=== PATIENT | female | born 1950 | race American Indian/Alaskan Native ===

== ENCOUNTER 2018-12-02 07:05 | Day surgery (SDC) | payer MEDICARE ==
[2018-12-02] MEDS ORDERED: ECOTRIN PO ONE (07:47)
[2018-12-02] MEDS: NACL 0.9% 500 ML 500 ML IV SCH ×2 (08:05→10:06)
[2018-12-02 08:10] LABS: Basophils % (Auto) 0.5 % (0.0-1.8); Eosinophils # (Auto) 0.3 K/mm3 (0.0-0.4); Eosinophils % (Auto) 4.4 % (0.0-4.3); Hematocrit 33.5 % (30.3-42.9); Hemoglobin 11.3 gm/dl (10.1-14.3); Lymphocytes # (Auto) 1.5 K/mm3 (1.2-5.4); Lymphocytes % (Auto) 20.5 % (13.4-35.0); Mean Corpuscular HGB Conc 34 % (30-34); Mean Corpuscular Volume 98 fl (79-97); Monocytes # (Auto) 0.6 K/mm3 (0.0-0.8); Monocytes % (Auto) 7.8 % (0.0-7.3); Platelet Count 188 K/mm3 (140-440); Red Cell Distribution Width 13.8 % (13.2-15.2)
[2018-12-02 08:23] LABS: INR 1.08 (0.87-1.13)
[2018-12-02 08:31] LABS: BUN/Creatinine Ratio 24; Blood Urea Nitrogen 24 mg/dL (7-17); Calcium 9.5 mg/dL (8.4-10.2); Hemolysis Index 12
[2018-12-02] MEDS ORDERED: NITROGLYCERIN SYRINGE 3 ML ONE (09:35)
[2018-12-02] MEDS ORDERED: XYLOCAINE 2% INFILTRATI ONE (09:35)
[2018-12-02] MEDS ORDERED: VERSED ONE (09:35)
[2018-12-02] MEDS ORDERED: SUBLIMAZE ONE (09:35)
[2018-12-02] MEDS ORDERED: HEPARIN/NS 5000 UNIT/500ML(CATH LAB) 1,000 ML IR ONE (09:35)
[2018-12-02] MEDS: CALAN ONE ×2 (10:10→10:17)
[2018-12-02] MEDS: HEPARIN 10,000 UNITS/10 ML ONE ×2 (10:11→10:17)
--- NOTE | 2018-12-02 10:55 | Short Stay Summary ---
Short Stay Documentation Date of service: 12/02/18 - History H&P: obtained from office - Allergies and Medications Current Medications: Allergies No Known Allergies Allergy (Unverified 12/02/18 07:05) Home Medications Medication Instructions Recorded Confirmed Last Taken Type AtorvaSTATin [Lipitor] 20 mg PO QHS 12/02/18 12/02/18 12/01/18 History Cholecalciferol (Vitamin D3) 50,000 unit PO QWEEK 12/02/18 12/02/18 11/30/18 History [Vitamin D3 50,000UNIT CAP] Enalapril Maleate [Vasotec] 20 mg PO DAILY 12/02/18 12/02/18 12/01/18 History Fluticasone/Salmeterol [Advair 1 puff IH BID 12/02/18 12/02/18 12/01/18 History Diskus 100-50 mcg] Omeprazole 20 mg PO 12/02/18 12/01/18 History hydroCHLOROthiazide [HCTZ] 25 mg PO QDAY 12/02/18 12/02/18 12/01/18 History Active Medications Sodium Chloride (Nacl 0.9% 500 Ml) 500 mls @ 50 mls/hr IV DIRECT SUZETTE Stop: 12/02/18 17:59 Last Admin: 12/02/18 10:06 Dose: 50 mls/hr Documented by: - Brief post op/procedure progress note Date of procedure: 12/02/18 Pre-op diagnosis: abnormal stress test Post-op diagnosis: same Procedure: C - see dictated cath report Anesthesia: local Estimated blood loss: none Condition: stable - Disposition Condition at discharge: Good Disposition: DC-01 TO HOME OR SELFCARE - Discharge Diagnoses (1) Abnormal stress test Status: Chronic (2) HTN (hypertension) Status: Chronic (3) Hyperlipidemia Status: Chronic Short Stay Discharge Plan Activity: advance as tolerated Wound: open to air, keep clean and dry, per your surgeon's advice Follow up with: BRITTANI TEMPLE MD [Primary Care Provider] - 7 Days JOSE MANUEL AKINS MD [Staff Physician] - 7 Days
--- NOTE | 2018-12-02 11:21 | Cardiac Catherization Report ---
INDICATIONS OF PROCEDURE: The patient is a 68-year-old female patient, being followed by Dr. Larson and Dr. Hermila Miner in the office, who was noted to have abnormal Lexiscan nuclear imaging performed on 11/10/2018. This showed medium sized partially reversible apical defect and small reversible anteroseptal defect with normal global left ventricular systolic function. However, because of abnormal stress nuclear imaging, the patient is scheduled for cardiac catheterization for definitive diagnosis and treatment. The patient is aware of the procedure, potential complications, and alternatives of therapy available. The patient is willing to proceed with coronary angiography. DESCRIPTION OF PROCEDURE: The patient was brought to the catheterization laboratory in a fasting condition. The patient was evaluated for moderate sedation and she was felt to be appropriate candidate for moderate sedation and received IV Versed and fentanyl. Subsequently, the patient was prepared in a standard fashion and right wrist area was thoroughly cleansed with chlorhexidine solution. Sterile drapes were applied. Local anesthesia was given in the right snuffbox area. Subsequently, distal radial artery in the snuffbox area was cannulated with 21-gauge arterial puncture needle. A 5-St Lucian slender sheath was introduced. The patient received 3000 units of intravenous heparin and 5 mg of intra-arterial verapamil. Subsequently, 5-St Lucian multipurpose catheter was used. However, there was resistance in the upper arm. Hence, an angiogram was performed which showed evidence of catheter being in the small branch of the radial artery, hence it was brought back and under fluoroscopy redirected into the brachial artery and multipurpose catheter was advanced into the aorta without difficulty. Catheter was advanced into the left ventricle and left ventriculogram done in MCNAMARA projection using hand injection and subsequently using the same catheter, left coronary artery angiograms were obtained in multiple views followed by right coronary angiograms in multiple views. At the end of the procedure, catheter and sheath were removed and good hemostasis was achieved in the right snuffbox area. No hematoma noted. The patient tolerated the procedure well. The patient received IV fentanyl and Versed starting at 10:08 a.m. and continuously monitored with pulse oximetry, EKG monitoring, and hemodynamic monitoring. IV sedation monitoring ended at 10:30 a.m. The patient tolerated the sedation well without any side effects. At the end of the procedure, the patient is able to communicate normally and drinking normally and moving all the extremities. The patient was transferred to the outpatient area in stable condition. Following findings were noted. HEMODYNAMICS: 1. Opening aortic pressure 117/66, left ventricular pressure 114/9. No gradient across the aortic valve. Estimated ejection fraction more than 55%. 2. Left ventriculogram done in MCNAMARA projection using a hand injection showed normal-sized left ventricle with normal contractility. Mitral regurgitation could not be evaluated because of limited amount of dye injected. 3. Right coronary artery arises normally from right coronary cusp. This is dominant, large vessel, tortuous, but angiographically smooth and normal. 4. Left coronary artery arises normally from left coronary cusp. Left main without significant disease. LAD is tortuous vessel curving around the apex. There is a large ramus branch and marginal branches, which are very, very tortuous. Otherwise, angiographically smooth and normal. 5. Collaterals none. FINAL IMPRESSION: 1. Normal-sized left ventricle with normal contractility. 2. Normal coronary anatomy angiographically, but very tortuous. 3. The patient's blood pressure and end-diastolic pressure are normal. 4. At this time, abnormal findings on the nuclear imaging cannot be explained by angiographic findings. The patient tolerated the procedure well. No untoward complications noted and findings were explained to the patient. She understands. JOB# [id number] JENI/MARYANN
[2018-12-02 13:05] VITALS: BP 113/75
== END 2018-12-02 13:35 | disposition home or self-care (01) ==
LOC: CATHLABREC 07:05
PROVIDERS: ATTEND Internal Medicine
DX: R94.39 Abnormal result of other cardiovascular function study (principal); I10 Essential (primary) hypertension; E78.5 Hyperlipidemia, unspecified; E78.00 Pure hypercholesterolemia, unspecified; J44.9 Chronic obstructive pulmonary disease, unspecified; F32.9 Major depressive disorder, single episode, unspecified; F41.9 Anxiety disorder, unspecified; Z98.890 Other specified postprocedural states; Z83.3 Family history of diabetes mellitus; Z80.3 Family history of malignant neoplasm of breast; Z87.891 Personal history of nicotine dependence; Z79.899 Other long term (current) drug therapy; Z98.49 Cataract extraction status, unspecified eye; Z82.61 Family history of arthritis; Z80.41 Family history of malignant neoplasm of ovary; Z86.2 Personal history of diseases of the blood and blood-forming organs and certain disorders involving the immune mechanism; Z82.49 Family history of ischemic heart disease and other diseases of the circulatory system
CPT/HCPCS: 36415; 80048; 85025; 85610; 85730; 93005; 93010; 93458; 99156; C1769; C1894; J1644; J2250; J3010; J7040; Q9967

== ENCOUNTER 2021-07-27 19:27 | Inpatient (IN) | payer MEDICARE ==
[2021-07-27] MEDS ORDERED: methylPREDNISolone Sod Succinate 125 MG/2 ML INJ IV ONE (20:02)
[2021-07-27] MEDS ORDERED: ALBUTEROL 2.5 MG/3 ML NEBU IH ONE (20:02)
[2021-07-27] MEDS ORDERED: MAGNESIUM SULFATE 2 GM/50 ML BAG IV ONE (20:02)
[2021-07-27] MEDS ORDERED: IPRATROPIUM 0.02% NEBU 2.5 ML IH ONE (20:02)
[2021-07-27] MEDS ORDERED: SODIUM CHLORIDE 0.9% 1000 ML 1,000 ML IV ONE (20:03)
--- NOTE | 2021-07-27 20:12 | Emergency Department Report ---
HPI - General Chief Complaint: Dyspnea/Respdistress Time Seen by Provider: 07/27/21 19:41 - HPI HPI: Room 23 The patient is a 70-year-old female present with a chief complaint of shortness of breath. The patient states her symptoms began today with shortness of breath. The patient states she ran out of her Trelegy yesterday and the pharmacy was not able to refill it. Patient admits to a cough productive of brownish-white sputum for the past 2 weeks. Patient denies history of fever but admits to rhinorrhea. The patient is not on home O2 ED Past Medical Hx - Past Medical History Hx Hypertension: Yes Hx COPD: Yes (No home O2) - Surgical History Additional Surgical History: Herniorrhaphy - Family History Family history: no significant - Social History Smoking Status: Former Smoker (None x20 years) Substance Use Type: None (Denies illicit drug use), Alcohol (Wine every other day) - Medications Home Medications: Home Medications Medication Instructions Recorded Confirmed Last Taken Type AtorvaSTATin [Lipitor] 20 mg PO QHS 12/02/18 12/02/18 12/01/18 History Cholecalciferol (Vitamin D3) 50,000 unit PO QWEEK 12/02/18 12/02/18 11/30/18 History [Vitamin D3 50,000UNIT CAP] Enalapril Maleate [Vasotec] 20 mg PO DAILY 12/02/18 12/02/18 12/01/18 History Fluticasone/Salmeterol [Advair 1 puff IH BID 12/02/18 12/02/18 12/01/18 History Diskus 100-50 mcg] Omeprazole 20 mg PO 12/02/18 12/01/18 History hydroCHLOROthiazide [HCTZ] 25 mg PO QDAY 12/02/18 12/02/18 12/01/18 History ED Review of Systems ROS: Stated complaint: SHORTNESS OF BREATH Other details as noted in HPI Constitutional: denies: fever Eyes: denies: eye pain ENT: denies: throat pain Respiratory: cough, shortness of breath, wheezing Cardiovascular: denies: chest pain Endocrine: no symptoms reported Gastrointestinal: denies: nausea, vomiting Genitourinary: denies: dysuria Musculoskeletal: denies: back pain Neurological: denies: headache Physical Exam - Physical Exam Vital Signs: Vital Signs 07/27/21 07/27/21 19:28 19:34 Temperature 97.7 F 97.7 F Pulse Rate 136 H 136 H Respiratory 22 20 Rate Blood Pressure 168/91 168/91 [Left] O2 Sat by Pulse 100 100 Oximetry Physical Exam: GENERAL: The patient is well-developed well-nourished female lying on stretcher exhibiting slightly increased work of HEENT: Normocephalic. Atraumatic. Extraocular motions are intact. Patient has moist mucous membranes. NECK: Supple. Trachea CHEST/LUNGS: Diffuse wheezing. Accessory muscle use HEART/CARDIOVASCULAR: Regular. There is tachycardia. There is no gallop rub or murmur. ABDOMEN: Abdomen is soft, nontender. Patient has normal bowel sounds. There is no abdominal distention. SKIN: There is no rash. There is no edema. There is no diaphoresis. NEURO: The patient is awake, alert, and oriented. The patient is cooperative. The patient has no focal neurologic deficits. The patient has normal speech. GCS 15 MUSCULOSKELETAL: There is no evidence of acute injury. ED Course Vital Signs 07/27/21 07/27/21 19:28 19:34 Temperature 97.7 F 97.7 F Pulse Rate 136 H 136 H Respiratory 22 20 Rate Blood Pressure 168/91 168/91 [Left] O2 Sat by Pulse 100 100 Oximetry ED Medical Decision Making - Lab Data Result diagrams: 07/27/21 20:26 07/27/21 20:26 Laboratory Tests 07/27/21 07/27/21 07/27/21 20:26 20:26 20:26 WBC 14.4 H RBC 3.11 L Hgb 9.0 L Hct 29.4 L MCV 94 MCH 29 MCHC 31 RDW 20.2 H Plt Count 342 Lymph % (Auto) Fire Warden [place] % (Auto) Fire Warden Eos % (Auto) Fire Warden Baso % (Auto) Fire Warden Lymph # (Auto) Fire Warden [place] # (Auto) Fire Warden Eos # (Auto) Fire Warden Baso # (Auto) Fire Warden Seg Neutrophils % Fire Warden Seg Neutrophils # Fire Warden Sodium 143 Potassium 3.0 L Chloride 106.2 Carbon Dioxide 22 Anion Gap 18 BUN 8 Creatinine 0.9 Estimated GFR > 60 BUN/Creatinine Ratio 9 Glucose 117 H Lactic Acid 1.60 Calcium 8.4 - EKG Data -: EKG Interpreted by Oh EKG shows normal: sinus rhythm Rate: tachycardia (135 bpm) - EKG Data When compared to previous EKG there are: previous EKG unavailable Interpretation: other (No ischemic changes seen) - Radiology Data Radiology results: report reviewed (Chest x-ray), image reviewed (Chest x-ray) interpreted by me: Chest [id number] pleural field haziness. Possibly chronic. No definite focal infiltrates. No [facility] [address] [place] [address] XRay Report Signed Patient: HALEIGH ATKINSON MR#: [id number] : 1950 Acct:[id number] Age/Sex: 70 / F ADM Date: 07/27/21 Loc: ED Attending Dr: Ordering Physician: BRITT THOMPSON MD Date of Service: 07/27/21 Procedure(s): XR chest 1V ap Accession Number(s): [id number] cc: BRITT THOMPSON MD Fluoro Time In Minutes: XR chest 1V ap INDICATION / CLINICAL INFORMATION: Shortness of breath, cough. COMPARISON: None available. FINDINGS: SUPPORT DEVICES: None. HEART /PULMONARY VASCULATURE: No significant abnormality. LUNGS / PLEURA: Severe chronic appearing parenchymal disease of the upper to mid lungs. No focal airspace consolidation. No sizable pleural effusion. No pneumothorax. IMPRESSION: Severe parenchymal disease of the upper lungs is favored to be chronic. No focal airspace consolidation, though superimposed infiltrate is difficult to exclude. Signer Name: Tanner Guzman MD Signed: 07/27/2021 8:21 PM Workstation Name: [id number] Transcribed By: JS Dictated By: TANNER GUZMAN MD Electronically Authenticated By: TANNER GUZMAN MD Signed Date/Time: 07/27/212020 DD/ 19 TD/TT: Print Cancel - Differential Diagnosis COPD exacerbation, pneumonia, COVID, bronchitis Critical care attestation.: If time is entered above; I have spent that time in minutes in the direct care of this critically ill patient, excluding procedure time. ED Disposition Clinical Impression: COPD exacerbation, Shortness of breath, Cough Disposition: ADMITTED INPATIENT Is pt being admited?: Yes Does the pt Need Aspirin: No Condition: Stable Instructions: Chronic Obstructive Pulmonary Disease (ED) Time of Disposition: 22:24 (Hospitalist called (Dr Lewis))
--- NOTE | 2021-07-27 20:25 | XRay Report ---
XR chest 1V ap INDICATION / CLINICAL INFORMATION: Shortness of breath, cough. COMPARISON: None available. FINDINGS: SUPPORT DEVICES: None. HEART /PULMONARY VASCULATURE: No significant abnormality. LUNGS / PLEURA: Severe chronic appearing parenchymal disease of the upper to mid lungs. No focal airs pace consolidation. No sizable pleural effusion. No pneumothorax. IMPRESSION: Severe parenchymal disease of the upper lungs is favored to be chronic. No focal airspace consolidati on, though superimposed infiltrate is difficult to exclude. Signer Name: Marshall Guzman MD Signed: 07/27/2021 8:21 PM Workstation Name: [id number]
[2021-07-27 21:18] LABS: BUN/Creatinine Ratio 9; Blood Urea Nitrogen 8 mg/dL (7-17); Calcium 8.4 mg/dL (8.4-10.2); Hemolysis Index 16
[2021-07-27] MEDS ORDERED: POTASSIUM CHLORIDE ER 20 MEQ TAB PO ONE (21:34)
[2021-07-27 21:49] LABS: Hematocrit 29.4 % (30.3-42.9); Mean Corpuscular HGB Conc 31 % (30-34); Mean Corpuscular Volume 94 fl (79-97); Platelet Count 342 K/mm3 (140-440); Red Blood Count 3.11 M/mm3 (3.65-5.03); Red Cell Distribution Width 20.2 % (13.2-15.2)
[2021-07-27] MEDS ORDERED: AZITHROMYCIN/NS 500 MG/250 ML 500 MG/250 ML BAG IV ONE (22:18)
[2021-07-27] MEDS ORDERED: cefTRIAXone/NS 1 GM/50 ML 1 GM/50 ML BAG IV ONE (22:18)
[2021-07-28] MEDS ORDERED: ALBUTEROL 2.5 MG/3 ML NEBU IH PRN (01:34)
[2021-07-28] MEDS ORDERED: ONDANSETRON 4 MG/2 ML INJ IV PRN (01:34)
[2021-07-28] MEDS ORDERED: ACETAMINOPHEN 325 MG TAB PO PRN (01:34)
[2021-07-28 01:48] LABS: Anisocytosis 1+; Band Neutrophils # (Manual) 0.1 K/mm3; Basophils % (Manual) 0 % (0.0-1.8); Platelet Estimate Consistent w Auto; Total Cells Counted 100
--- NOTE | 2021-07-28 02:03 | History and Physical Report ---
History of Present Illness Date of examination: 07/28/21 Date of admission: 07/28/21 01:34 Chief complaint: Shortness of breath Coughing History of present illness: 70-year-old female with past medical history of hypertension and COPD not on home oxygen was brought to the emergency room because of shortness of breath. The patient states her symptoms began today with shortness of breath. The patient states she ran out of her Trelegy yesterday and the pharmacy was not able to refill it. Patient admits to a cough productive of brownish-white sputum for the past 2 weeks. Patient denies history of fever but admits to rhinorrhea. The patient is not on home O2 In the emergency room patient chest x-ray showed severe parenchymal disease of the upper lungs is favored to be called chronic. No focal airspace consolidation, though superimposed infiltrate is difficult to exclude, we are going to admit the patient we will put the patient on COPD pathway Past History Past Medical History: COPD, hypertension Medications and Allergies Allergies Allergy/AdvReac Type Severity Reaction Status Date / Time No Known Allergies Allergy Verified 07/27/21 19:34 Home Medications Medication Instructions Recorded Confirmed Last Taken Type AtorvaSTATin [Lipitor] 20 mg PO QHS 12/02/18 12/02/18 12/01/18 History Cholecalciferol (Vitamin D3) 50,000 unit PO QWEEK 12/02/18 12/02/18 11/30/18 History [Vitamin D3 50,000UNIT CAP] Enalapril Maleate [Vasotec] 20 mg PO DAILY 12/02/18 12/02/18 12/01/18 History Fluticasone/Salmeterol [Advair 1 puff IH BID 12/02/18 12/02/18 12/01/18 History Diskus 100-50 mcg] Omeprazole 20 mg PO 12/02/18 12/01/18 History hydroCHLOROthiazide [HCTZ] 25 mg PO QDAY 12/02/18 12/02/18 12/01/18 History Active Meds: Active Medications Acetaminophen (Acetaminophen 325 Mg Tab) 650 mg PO Q4H PRN PRN Reason: Pain MILD(1-3)/Fever >100.5/MARTINEZ Albuterol (Albuterol 2.5 Mg/3 Ml Nebu) 2.5 mg IH Q4HRT PRN PRN Reason: Shortness Of Breath Albuterol/Ipratropium (Ipratropium/Albuterol Sulfate 3 Ml Ampul.Neb) 1 ampul IH Q6HRT [facility] Arformoterol Tartrate (Arformoterol 15 Mcg/2 Ml Nebu) 15 mcg IH Q12HRT [facility] Atorvastatin Calcium (Atorvastatin 20 Mg Tab) 20 mg PO QHS [facility] Budesonide (Budesonide 0.5 Mg/2 Ml Nebu) 0.5 mg IH Q12HRT [facility] Famotidine (Famotidine 10 Mg Tab) 10 mg PO BID [facility] Heparin Sodium (Porcine) (Heparin 5,000 Unit/1 Ml Vial) 5,000 unit SUB-Q Q8HR [facility] Hydrochlorothiazide (Hydrochlorothiazide 25 Mg Tab) 25 mg PO QDAY [facility] Hydromorphone HCl (Hydromorphone 1 Mg/1 Ml Inj) 0.5 mg IV Q3H PRN PRN Reason: Pain , Severe (7-10) Levofloxacin (Levofloxacin 750 Mg Tab) 750 mg PO Q24HR SUZETTE; Protocol Lisinopril (Lisinopril 20 Mg Tab) 20 mg PO QDAY [facility] Methylprednisolone Sodium Succinate (Methylprednisolone Sod Succinate 40 Mg/1 Ml Inj) 40 mg IV Q6HR SUZETTE Montelukast Sodium (Montelukast 10 Mg Tab) 10 mg PO QHS [facility] Morphine Sulfate (Morphine 2 Mg/1 Ml Inj) 2 mg IV Q4H PRN PRN Reason: Pain, Moderate (4-6) Ondansetron HCl (Ondansetron 4 Mg/2 Ml Inj) 4 mg IV Q8H PRN PRN Reason: Nausea And Vomiting Sodium Chloride (Sodium Chloride 0.9% 10 Ml Flush Syringe) 10 ml IV BID [facility] Sodium Chloride (Sodium Chloride 0.9% 10 Ml Flush Syringe) 10 ml IV PRN PRN PRN Reason: LINE FLUSH Review of Systems All systems: negative Cardiovascular: shortness of breath, dyspnea on exertion Respiratory: cough, cough with sputum, shortness of breath, dyspnea on exertion, wheezing Exam - Constitutional Vitals: Temp Pulse Resp BP Pulse Ox 97.7 F 121 H 27 H 149/86 100 07/27/21 19:34 07/28/21 01:26 07/28/21 01:26 07/28/21 01:26 07/28/21 01:32 General appearance: Present: no acute distress, well-nourished - EENT Eyes: Present: PERRL ENT: hearing intact, clear oral mucosa - Neck Neck: Present: supple, normal ROM - Respiratory Respiratory effort: normal Respiratory: bilateral: wheezing - Cardiovascular Heart Sounds: Present: S1 & S2. Absent: rub, click - Extremities Extremities: pulses symmetrical, No edema Peripheral Pulses: within normal limits - Abdominal General gastrointestinal: Present: soft, non-tender, non-distended, normal bowel sounds Female genitourinary: Present: normal - Integumentary Integumentary: Present: clear, warm, dry - Musculoskeletal Musculoskeletal: gait normal, strength equal bilaterally - Psychiatric Psychiatric: appropriate mood/affect, intact judgment & insight - Neurologic Neurologic: CNII-XII intact, moves all extremities Results - Labs CBC & Chem 7: 07/27/21 20:26 07/27/21 20:26 Labs: Laboratory Last Values WBC 14.4 K/mm3 (4.5-11.0) H 07/27/21 20: RBC 3.11 M/mm3 (3.65-5.03) L 07/27/21 20:26 Hgb 9.0 gm/dl (10.1-14.3) L 07/27/21 20: Hct 29.4 % (30.3-42.9) L 07/27/21 20: MCV 94 fl (79-97) 07/27/21 20:26 MCH 29 pg (28-32) 07/27/21 20: MCHC 31 % (30-34) 07/27/21 20: RDW 20.2 % (13.2-15.2) H 07/27/21 20:26 Plt Count 342 K/mm3 (140-440) 07/27/21 20:26 Lymph % (Auto) Stabber 07/27/21 20:26 [place] % (Auto) Stabber 07/27/21 20:26 Eos % (Auto) Stabber 07/27/21 20:26 Baso % (Auto) Stabber 07/27/21 20:26 Lymph # (Auto) Stabber 07/27/21 20:26 [place] # (Auto) Stabber 07/27/21 20:26 Eos # (Auto) Stabber 07/27/21 20:26 Baso # (Auto) Stabber 07/27/21 20:26 Add Manual Diff Complete 07/27/21 20: Total Counted 100 07/27/21 20: Seg Neutrophils % Stabber 07/27/21 20: Seg Neuts % (Manual) 84.0 % (40.0-70.0) H 07/27/21 20: Band Neutrophils % 1.0 % 07/27/21 20: Lymphocytes % (Manual) 5.0 % (13.4-35.0) L 07/27/21 20: Reactive Lymphs % (Man) 1.0 % 07/27/21 20: Monocytes % (Manual) 6.0 % (0.0-7.3) 07/27/21 20: Eosinophils % (Manual) 3.0 % (0.0-4.3) 07/27/21 20: Basophils % (Manual) 0 % (0.0-1.8) 07/27/21 20: Metamyelocytes % 0 % 07/27/21 20: Myelocytes % 0 % 07/27/21 20: Promyelocytes % 0 % 07/27/21 20: Blast Cells % 0 % 07/27/21 20: Nucleated RBC % Not Reportable 07/27/21 20: Seg Neutrophils # Stabber 07/27/21 20: Seg Neutrophils # Man 12.1 K/mm3 (1.8-7.7) H 07/27/21 20: Band Neutrophils # 0.1 K/mm3 07/27/21 20: Lymphocytes # (Manual) 0.7 K/mm3 (1.2-5.4) L 07/27/21 20: Abs React Lymphs (Man) 0.1 K/mm3 07/27/21 20: Monocytes # (Manual) 0.9 K/mm3 (0.0-0.8) H 07/27/21 20: Eosinophils # (Manual) 0.4 K/mm3 (0.0-0.4) 07/27/21 20: Basophils # (Manual) 0.0 K/mm3 (0.0-0.1) 07/27/21 20: Metamyelocytes # 0.0 K/mm3 07/27/21 20: Myelocytes # 0.0 K/mm3 07/27/21 20: Promyelocytes # 0.0 K/mm3 07/27/21 20:26 Blast Cells # 0.0 K/mm3 07/27/21 20:26 WBC Morphology Not Reportable 07/27/21 20:26 Hypersegmented Neuts Not Reportable 07/27/21 20:26 Hyposegmented Neuts Not Reportable 07/27/21 20:26 Hypogranular Neuts Not Reportable 07/27/21 20:26 Smudge Cells Not Reportable 07/27/21 20:26 Toxic Granulation Not Reportable 07/27/21 20:26 Toxic Vacuolation Not Reportable 07/27/21 20:26 Dohle Bodies Not Reportable 07/27/21 20:26 Pelger-Huet Anomaly Not Reportable 07/27/21 20:26 Gabriel Rods Not Reportable 07/27/21 20:26 Platelet Estimate Consistent w auto 07/27/21 20:26 Clumped Platelets Not Reportable 07/27/21 20:26 Plt Clumps, EDTA Not Reportable 07/27/21 20:26 Large Platelets Not Reportable 07/27/21 20:26 Giant Platelets Not Reportable 07/27/21 20:26 Platelet Satelliting Not Reportable 07/27/21 20:26 Plt Morphology Comment Not Reportable 07/27/21 20:26 RBC Morphology Not Reportable 07/27/21 20:26 Dimorphic RBCs Not Reportable 07/27/21 20:26 Polychromasia Not Reportable 07/27/21 20:26 Hypochromasia Not Reportable 07/27/21 20:26 Poikilocytosis Not Reportable 07/27/21 20:26 Anisocytosis 1+ 07/27/21 20:26 Microcytosis Not Reportable 07/27/21 20:26 Macrocytosis Not Reportable 07/27/21 20:26 Spherocytes Not Reportable 07/27/21 20:26 Pappenheimer Bodies Not Reportable 07/27/21 20:26 Sickle Cells Not Reportable 07/27/21 20:26 Target Cells Not Reportable 07/27/21 20:26 Tear Drop Cells Not Reportable 07/27/21 20:26 Ovalocytes Not Reportable 07/27/21 20:26 Helmet Cells Not Reportable 07/27/21 20:26 Gregory-[place] Bodies Not Reportable 07/27/21 20:26 [place] Rings Not Reportable 07/27/21 20:26 Maged Cells Not Reportable 07/27/21 20:26 Bite Cells Not Reportable 07/27/21 20:26 Crenated Cell Not Reportable 07/27/21 20:26 Elliptocytes Not Reportable 07/27/21 20:26 Acanthocytes (Spur) Not Reportable 07/27/21 20:26 Rouleaux Not Reportable 07/27/21 20:26 Hemoglobin C Crystals Not Reportable 07/27/21 20:26 Schistocytes Not Reportable 07/27/21 20:26 Malaria parasites Not Reportable 07/27/21 20:26 Merlin Bodies Not Reportable 07/27/21 20:26 Hem Pathologist Commnt No 07/27/21 20:26 Sodium 143 mmol/L (137-145) 07/27/21 20:26 Potassium 3.0 mmol/L (3.6-5.0) L 07/27/21 20:26 Chloride 106.2 mmol/L (98-107) 07/27/21 20:26 Carbon Dioxide 22 mmol/L (22-30) 07/27/21 20:26 Anion Gap 18 mmol/L 07/27/21 20:26 BUN 8 mg/dL (7-17) 07/27/21 20:26 Creatinine 0.9 mg/dL (0.6-1.2) 07/27/21 20:26 Estimated GFR > 60 ml/min 07/27/21 20:26 BUN/Creatinine Ratio 9 % 07/27/21 20:26 Glucose 117 mg/dL (65-100) H 07/27/21 20:26 Lactic Acid 1.60 mmol/L (0.7-2.0) 07/27/21 20:26 Calcium 8.4 mg/dL (8.4-10.2) 07/27/21 20:26 Microbiology: Microbiology 07/27/21 20:26 Peripheral/Venous Blood Culture - Preliminary Culture in Progress 07/27/21 20:26 Peripheral/Venous Blood Culture - Preliminary Culture in Progress - Imaging and Cardiology Chest x-ray: report reviewed Assessment and Plan VTE prophylaxis?: Chemical Plan of care discussed with patient/family: Yes - Patient Problems (1) Acute exacerbation of chronic obstructive pulmonary disease (COPD) Current Visit: Yes Status: Acute Plan to address problem: Admit the patient to the medical floor. Oxygen by nasal cannula 3 l/min. DuoNeb nebulizer every 4 hours. Albuterol by nebulizer every 4 hours as needed. Solu-Medrol 40 mg IV every 6 hours. Levaquin 750 mg p.o. daily. Do the blood cultures sputum culture. Consult pulmonary if needed (2) Shortness of breath Current Visit: Yes Status: Acute Plan to address problem: Oxygen by nasal cannula 3 l/min. DuoNeb nebulizer every 4 hours. Albuterol by nebulizer every 4 hours as needed. Solu-Medrol 40 mg IV every 6 hours. Levaquin 750 mg p.o. daily. Do the blood cultures sputum culture. Consult pulmonary if needed (3) HTN (hypertension) Current Visit: No Status: Chronic Plan to address problem: Hydralazine 10 mg IV every 6 hours as needed. We continue the home medication. We monitor the patient closely (4) Hyperlipidemia Current Visit: No Status: Chronic Plan to address problem: Lipitor 20 mg p.o. nightly. We continue the home medication (5) DVT prophylaxis Current Visit: Yes Status: Acute Plan to address problem: Heparin 5000 units subcu every 8 hours for DVT prophylaxis. Pepcid 20 mg p.o. twice daily for GI prophylaxis. Patient is a full code
[2021-07-28] MEDS: IPRATROPIUM/ALBUTEROL SULFATE 3 ML AMPUL.NEB IH SCH ×4 (03:41→20:24)
[2021-07-28] MEDS: methylPREDNISolone Sod Succinate 40 MG/1 ML INJ IV SCH ×3 (06:04→23:19)
[2021-07-28] MEDS: HEPARIN 5,000 UNIT/1 ML VIAL SUB-Q SCH ×3 (06:04→22:20)
--- NOTE | 2021-07-28 09:10 | Progress Note ---
Assessment and Plan Assessment and plan: VTE prophylaxis?: Chemical Plan of care discussed with patient/family: Yes --PUI/high suspicion for COVID-19 Jo PCR, isolation precautions Oxygen evaluation -- Possible atrial flutter; Beta-blockers, closely monitor Cardiology consult if no improvement - Acute exacerbation of chronic obstructive pulmonary disease (COPD) Current Visit: Yes Status: Acute Admit the patient to the medical floor. Oxygen by nasal cannula 3 l/min. DuoNeb nebulizer every 4 hours. Albuterol by nebulizer every 4 hours as needed. Solu-Medrol 40 mg IV every 6 hours. Levaquin 750 mg p.o. daily. Do the blood cultures sputum culture. Consult pulmonary if needed -- Shortness of breath Current Visit: Yes Status: Acute Oxygen by nasal cannula 3 l/min. DuoNeb nebulizer every 4 hours. Albuterol by nebulizer every 4 hours as needed. Solu-Medrol 40 mg IV every 6 hours. Levaquin 750 mg p.o. daily. Do the blood cultures sputum culture. Consult pulmonary if needed --HTN (hypertension) Current Visit: No Status: Chronic Hydralazine 10 mg IV every 6 hours as needed. We continue the home medication. We monitor the patient closely -- Hyperlipidemia Current Visit: No Status: Chronic Lipitor 20 mg p.o. nightly. We continue the home medication -- DVT prophylaxis Current Visit: Yes Status: Acute Heparin 5000 units subcu every 8 hours for DVT prophylaxis. Pepcid 20 mg p.o. twice daily for GI prophylaxis. Patient is a full code History Interval history: I have seen and examined the patient Isolation precautions PPE protocols observed Patient feels slightly better No new complaints Hospitalist Physical - Constitutional Vitals: Temp Pulse Resp BP Pulse Ox 97.7 F 100 H 16 145/92 100 07/27/21 19:34 07/28/21 08:07 07/28/21 08:07 07/28/21 08:07 07/28/21 08:07 General appearance: Present: no acute distress, well-nourished - EENT Eyes: Present: PERRL, scleral icterus - Neck Neck: Present: supple, normal ROM - Respiratory Respiratory effort: normal Respiratory: bilateral: diminished, negative: rales, rhonchi, wheezing - Cardiovascular Rhythm: regular Heart Sounds: Present: S1 & S2 - Extremities Extremities: no ischemia, No edema - Abdominal General gastrointestinal: soft, non-tender, non-distended - Integumentary Integumentary: Present: clear, warm - Psychiatric Psychiatric: appropriate mood/affect, cooperative - Neurologic Neurologic: moves all extremities Results - Labs CBC & Chem 7: 07/27/21 20:26 07/27/21 20:26 Labs: Laboratory Last Values WBC 14.4 K/mm3 (4.5-11.0) H 07/27/21 20: RBC 3.11 M/mm3 (3.65-5.03) L 07/27/21 20: Hgb 9.0 gm/dl (10.1-14.3) L 07/27/21 20: Hct 29.4 % (30.3-42.9) L 07/27/21 20: MCV 94 fl (79-97) 07/27/21 20: MCH 29 pg (28-32) 07/27/21 20: MCHC 31 % (30-34) 07/27/21 20: RDW 20.2 % (13.2-15.2) H 07/27/21 20: Plt Count 342 K/mm3 (140-440) 07/27/21 20:26 Lymph % (Auto) Mechanical Maintenance Engineer 07/27/21 20:26 [place] % (Auto) Mechanical Maintenance Engineer 07/27/21 20:26 Eos % (Auto) Mechanical Maintenance Engineer 07/27/21 20:26 Baso % (Auto) Mechanical Maintenance Engineer 07/27/21 20:26 Lymph # (Auto) Mechanical Maintenance Engineer 07/27/21 20:26 [place] # (Auto) Mechanical Maintenance Engineer 07/27/21 20:26 Eos # (Auto) Mechanical Maintenance Engineer 07/27/21 20:26 Baso # (Auto) Mechanical Maintenance Engineer 07/27/21 20:26 Add Manual Diff Complete 07/27/21 20: Total Counted 100 07/27/21 20: Seg Neutrophils % Mechanical Maintenance Engineer 07/27/21 20: Seg Neuts % (Manual) 84.0 % (40.0-70.0) H 07/27/21 20: Band Neutrophils % 1.0 % 07/27/21 20: Lymphocytes % (Manual) 5.0 % (13.4-35.0) L 07/27/21 20: Reactive Lymphs % (Man) 1.0 % 07/27/21 20:26 Monocytes % (Manual) 6.0 % (0.0-7.3) 07/27/21 20: Eosinophils % (Manual) 3.0 % (0.0-4.3) 07/27/21 20: Basophils % (Manual) 0 % (0.0-1.8) 07/27/21 20: Metamyelocytes % 0 % 07/27/21 20: Myelocytes % 0 % 07/27/21 20: Promyelocytes % 0 % 07/27/21 20: Blast Cells % 0 % 07/27/21 20: Nucleated RBC % Not Reportable 07/27/21 20: Seg Neutrophils # Mechanical Maintenance Engineer 07/27/21: Seg Neutrophils # Man 12.1 K/mm3 (1.8-7.7) H 07/27/21 20: Band Neutrophils # 0.1 K/mm3 07/27/21 20: Lymphocytes # (Manual) 0.7 K/mm3 (1.2-5.4) L 07/27/21 20: Abs React Lymphs (Man) 0.1 K/mm3 07/27/21 20: Monocytes # (Manual) 0.9 K/mm3 (0.0-0.8) H 07/27/21 20: Eosinophils # (Manual) 0.4 K/mm3 (0.0-0.4) 07/27/21 20: Basophils # (Manual) 0.0 K/mm3 (0.0-0.1) 07/27/21 20: Metamyelocytes # 0.0 K/mm3 07/27/21 20: Myelocytes # 0.0 K/mm3 07/27/21 20: Promyelocytes # 0.0 K/mm3 07/27/21 20: Blast Cells # 0.0 K/mm3 07/27/21 20: WBC Morphology Not Reportable 07/27/21 20: Hypersegmented Neuts Not Reportable 07/27/21 20: Hyposegmented Neuts Not Reportable 07/27/21 20: Hypogranular Neuts Not Reportable 07/27/21 20: Smudge Cells Not Reportable 07/27/21 20: Toxic Granulation Not Reportable 07/27/21 20:26 Toxic Vacuolation Not Reportable 07/27/21 20:26 Dohle Bodies Not Reportable 07/27/21 20:26 Pelger-Huet Anomaly Not Reportable 07/27/21 20:26 Gabriel Rods Not Reportable 07/27/21 20:26 Platelet Estimate Consistent w auto 07/27/21 20:26 Clumped Platelets Not Reportable 07/27/21 20:26 Plt Clumps, EDTA Not Reportable 07/27/21 20:26 Large Platelets Not Reportable 07/27/21 20:26 Giant Platelets Not Reportable 07/27/21 20:26 Platelet Satelliting Not Reportable 07/27/21 20:26 Plt Morphology Comment Not Reportable 07/27/21 20:26 RBC Morphology Not Reportable 07/27/21 20:26 Dimorphic RBCs Not Reportable 07/27/21 20:26 Polychromasia Not Reportable 07/27/21 20:26 Hypochromasia Not Reportable 07/27/21 20:26 Poikilocytosis Not Reportable 07/27/21 20:26 Anisocytosis 1+ 07/27/21 20:26 Microcytosis Not Reportable 07/27/21 20:26 Macrocytosis Not Reportable 07/27/21 20:26 Spherocytes Not Reportable 07/27/21 20:26 Pappenheimer Bodies Not Reportable 07/27/21 20:26 Sickle Cells Not Reportable 07/27/21 20:26 Target Cells Not Reportable 07/27/21 20:26 Tear Drop Cells Not Reportable 07/27/21 20:26 Ovalocytes Not Reportable 07/27/21 20:26 Helmet Cells Not Reportable 07/27/21 20:26 [place] Bodies Not Reportable 07/27/21 20:26 [place] Rings Not Reportable 07/27/21 20:26 Maged Cells Not Reportable 07/27/21 20:26 Bite Cells Not Reportable 07/27/21 20:26 Crenated Cell Not Reportable 07/27/21 20:26 Elliptocytes Not Reportable 07/27/21 20:26 Acanthocytes (Spur) Not Reportable 07/27/21 20:26 Rouleaux Not Reportable 07/27/21 20:26 Hemoglobin C Crystals Not Reportable 07/27/21 20:26 Schistocytes Not Reportable 07/27/21 20:26 Malaria parasites Not Reportable 07/27/21 20:26 Merlin Bodies Not Reportable 07/27/21 20:26 Hem Pathologist Commnt No 07/27/21 20:26 Sodium 143 mmol/L (137-145) 07/27/21 20:26 Potassium 3.0 mmol/L (3.6-5.0) L 07/27/21 20:26 Chloride 106.2 mmol/L (98-107) 07/27/21 20:26 Carbon Dioxide 22 mmol/L (22-30) 07/27/21 20:26 Anion Gap 18 mmol/L 07/27/21 20:26 BUN 8 mg/dL (7-17) 07/27/21 20:26 Creatinine 0.9 mg/dL (0.6-1.2) 07/27/21 20:26 Estimated GFR > 60 ml/min 07/27/21 20:26 BUN/Creatinine Ratio 9 % 07/27/21 20:26 Glucose 117 mg/dL (65-100) H 07/27/21 20:26 Lactic Acid 1.60 mmol/L (0.7-2.0) 07/27/21 20:26 Calcium 8.4 mg/dL (8.4-10.2) 07/27/21 20:26 Microbiology: Microbiology 07/27/21 20:26 Peripheral/Venous Blood Culture - Preliminary Culture in Progress 07/27/21 20:26 Peripheral/Venous Blood Culture - Preliminary Culture in Progress Active Medications - Current Medications Current Medications: Generic Name Dose Route Start Last Admin Trade Name Jeannine PRN Reason Stop Dose Admin Acetaminophen 650 mg 07/28/21 01:34 Acetaminophen 325 Mg Tab PO Q4H PRN Pain MILD(1-3)/Fever >100.5/MARTINEZ Albuterol 2.5 mg 07/28/21 01:34 Albuterol 2.5 Mg/3 Ml Nebu IH Q4HRT PRN Shortness Of Breath Albuterol/Ipratropium 1 ampul 07/28/21 02:00 07/28/21 03:41 Ipratropium/Albuterol Sulfate 3 Ml Ampul.Neb IH Not Given Q6HRT SUZ[facility]TE Arformoterol Tartrate 15 mcg 07/28/21 08:00 Arformoterol 15 Mcg/2 Ml Nebu IH Q12HRT [facility] Atorvastatin Calcium 20 mg 07/28/21 22:00 Atorvastatin 20 Mg Tab PO QHS [facility] Budesonide 0.5 mg 07/28/21 08:00 Budesonide 0.5 Mg/2 Ml Nebu IH Q12HRT [facility] Famotidine 10 mg 07/28/21 10:00 Famotidine 10 Mg Tab PO BID [facility] Heparin Sodium (Porcine) 5,000 unit 07/28/21 06:00 07/28/21 06:04 Heparin 5,000 Unit/1 Ml Vial SUB-Q 5,000 unit Q8HR [facility] Administration Hydrochlorothiazide 25 mg 07/28/21 10:00 Hydrochlorothiazide 25 Mg Tab PO QDAY [facility] Hydromorphone HCl 0.5 mg 07/28/21 01:34 Hydromorphone 1 Mg/1 Ml Inj IV Q3H PRN Pain , Severe (7-10) Levofloxacin 750 mg 07/28/21 10:00 Levofloxacin 750 Mg Tab PO 08/01/21 10:01 Q24HR [facility] Protocol Lisinopril 20 mg 07/28/21 10:00 Lisinopril 20 Mg Tab PO QDAY [facility] Methylprednisolone Sodium Succinate 40 mg 07/28/21 06:00 07/28/21 06:04 Methylprednisolone Sod Succinate 40 Mg/1 Ml Inj IV 40 mg Q6HR [facility] Administration Montelukast Sodium 10 mg 07/28/21 22:00 Montelukast 10 Mg Tab PO QHS [facility] Morphine Sulfate 2 mg 07/28/21 01:34 Morphine 2 Mg/1 Ml Inj IV Q4H PRN Pain, Moderate (4-6) Ondansetron HCl 4 mg 07/28/21 01:34 Ondansetron 4 Mg/2 Ml Inj IV Q8H PRN Nausea And Vomiting Sodium Chloride 10 ml 07/28/21 10:00 Sodium Chloride 0.9% 10 Ml Flush Syringe IV BID [facility] Sodium Chloride 10 ml 07/28/21 01:34 Sodium Chloride 0.9% 10 Ml Flush Syringe IV PRN PRN LINE FLUSH
[2021-07-28] MEDS: BUDESONIDE 0.5 MG/2 ML NEBU IH SCH ×2 (09:33→20:22)
[2021-07-28] MEDS: ARFORMOTEROL 15 MCG/2 ML NEBU IH SCH ×2 (09:33→20:21)
[2021-07-28] MEDS: FAMOTIDINE 10 MG TAB PO SCH ×2 (09:54→22:19)
[2021-07-28] MEDS: LISINOPRIL 20 MG TAB PO SCH (09:54)
[2021-07-28] MEDS: hydroCHLOROthiazide 25 MG TAB PO SCH (09:54)
[2021-07-28] MEDS: levoFLOXacin 750 MG TAB PO SCH (09:54)
[2021-07-28] MEDS ORDERED: FLUTICASONE IH SCH (10:00)
[2021-07-28] MEDS ORDERED: FAMOTIDINE 20 MG TAB PO SCH (10:00)
[2021-07-28] MEDS ORDERED: [UNRECOGNIZED DRUG - OTHER] IH SCH (10:00)
[2021-07-28] MEDS ORDERED: SALMETEROL IH SCH (10:00)
[2021-07-28] MEDS ORDERED: NON-FORMULARY EACH (Enalapril Maleate [Vasotec] 20 MG Tablet) PO SCH (10:00)
[2021-07-28] MEDS ORDERED: METOPROLOL TARTRATE 50 MG TAB PO ONE (13:54)
--- NOTE | 2021-07-28 19:10 | Event Note ---
Date: 07/28/21 Patient's roa PCR test is positive 07/28/2021 No hypoxia, patient saturating well on room air No need for steroids or remdesivir Isolation precautions contact and droplet isolation Patient is already on empiric antibiotics Closely monitor the patient and adjust management as needed
[2021-07-28] MEDS: MONTELUKAST 10 MG TAB PO SCH (22:19)
[2021-07-28] MEDS: METOPROLOL TARTRATE 25 MG TAB PO SCH (23:21)
[2021-07-29] MEDS: HYDROmorphone 1 MG/1 ML INJ IV PRN ×3 (00:09→20:44)
[2021-07-29] MEDS: methylPREDNISolone Sod Succinate 40 MG/1 ML INJ IV SCH ×3 (05:31→23:15)
[2021-07-29] MEDS: HEPARIN 5,000 UNIT/1 ML VIAL SUB-Q SCH ×3 (05:34→22:36)
[2021-07-29 06:20] LABS: Hematocrit 28.7 % (30.3-42.9); Mean Corpuscular HGB Conc 31 % (30-34); Mean Corpuscular Volume 96 fl (79-97); Platelet Count 356 K/mm3 (140-440); Red Blood Count 3.01 M/mm3 (3.65-5.03)
[2021-07-29 06:38] LABS: Red Cell Distribution Width 20.4 % (13.2-15.2)
[2021-07-29 06:50] LABS: BUN/Creatinine Ratio 19; Blood Urea Nitrogen 15 mg/dL (7-17); Calcium 8.4 mg/dL (8.4-10.2); Hemolysis Index 0
[2021-07-29 08:25] LABS: Anisocytosis 1+; Basophils % (Manual) 0 % (0.0-1.8); Eosinophils % (Manual) 0 % (0.0-4.3); Platelet Estimate Consistent w Auto; Total Cells Counted 100
--- NOTE | 2021-07-29 09:04 | Progress Note ---
Assessment and Plan Assessment and plan: Assessment and plan: VTE prophylaxis?: Chemical Plan of care discussed with patient/family: Yes --Positive COVID-19[07/28/2021] Jo PCR, isolation precautions Inflammatory markers Requiring 2 to 3 L of nasal cannula oxygen Prone positioning ID consult --PUI; high suspicion for COVID-19; Jo PCR test is positive -- Possible atrial flutter; sinus tach today Beta-blockers, closely monitor Cardiology consult if needed - Acute exacerbation of chronic obstructive pulmonary disease (COPD) Current Visit: Yes Status: Acute Admit the patient to the medical floor. Oxygen by nasal cannula 3 l/min. DuoNeb nebulizer every 4 hours. Albuterol by nebulizer every 4 hours as needed. Solu-Medrol 40 mg IV every 6 hours. Levaquin 750 mg p.o. daily. Do the blood cultures sputum culture. Consult pulmonary if needed -- Shortness of breath Current Visit: Yes Status: Acute Oxygen by nasal cannula 3 l/min. DuoNeb nebulizer every 4 hours. Albuterol by nebulizer every 4 hours as needed. Solu-Medrol 40 mg IV every 6 hours. Levaquin 750 mg p.o. daily. Do the blood cultures sputum culture. Consult pulmonary if needed --HTN (hypertension) Current Visit: No Status: Chronic Hydralazine 10 mg IV every 6 hours as needed. We continue the home medication. We monitor the patient closely -- Hyperlipidemia Current Visit: No Status: Chronic Lipitor 20 mg p.o. nightly. We continue the home medication -- DVT prophylaxis Current Visit: Yes Status: Acute Heparin 5000 units subcu every 8 hours for DVT prophylaxis. Pepcid 20 mg p.o. twice daily for GI prophylaxis. Patient is a full code Brief history: 70-year-old female with past medical history of hypertension and COPD not on home oxygen was brought to the emergency room because of shortness of breath. The patient states her symptoms began today with shortness of breath. The patient states she ran out of her Trelegy yesterday and the pharmacy was not ab le to refill it. Patient admits to a cough productive of brownish-white sputum for the past 2 weeks. Patient denies history of fever but admits to rhinorrhea. Jo PCR test is positive, hypoxic on steroids and remdesivir, consult ID if needed 07/29/2021; positive COVID-19 on 07/28/2021, 2 L of nasal cannula oxygen, continue steroid, add remdesivir Follow inflammatory markers History Interval history: I have seen and examined the patient at the bedside Patient's chart and medications reviewed Patient feels slightly better no new complaints Isolation precautions and PPE protocols observed Hospitalist Physical - Constitutional Vitals: Temp Pulse Resp BP Pulse Ox 98.2 F 76 18 152/96 100 07/28/21 23:11 07/28/21 23:21 07/28/21 23:11 07/28/21 23:21 07/28/21 23:11 General appearance: Present: no acute distress, well-nourished, other (2 L nasal cannula) - EENT Eyes: Present: PERRL, EOM intact - Neck Neck: Present: supple, normal ROM - Respiratory Respiratory effort: normal Respiratory: bilateral: diminished, negative: rales, rhonchi, wheezing - Cardiovascular Rhythm: regular Heart Sounds: Present: S1 & S2 - Extremities Extremities: no ischemia, No edema - Abdominal General gastrointestinal: soft, non-tender, non-distended, normal bowel sounds - Integumentary Integumentary: Present: clear, warm - Psychiatric Psychiatric: appropriate mood/affect, cooperative - Neurologic Neurologic: CNII-XII intact, moves all extremities Results - Labs CBC & Chem 7: 07/29/21 05:29 07/29/21 05:29 Labs: Laboratory Last Values WBC 13.9 K/mm3 (4.5-11.0) H 07/29/21 05:29 RBC 3.01 M/mm3 (3.65-5.03) L 07/29/21 05:29 Hgb 9.0 gm/dl (10.1-14.3) L 07/29/21 05:29 Hct 28.7 % (30.3-42.9) L 07/29/21 05:29 MCV 96 fl (79-97) 07/29/21 05:29 MCH 30 pg (28-32) 07/29/21 05:29 MCHC 31 % (30-34) 07/29/21 05:29 RDW 20.4 % (13.2-15.2) H 07/29/21 05:29 Plt Count 356 K/mm3 (140-440) 07/29/21 05:29 Lymph % (Auto) Loan Servicing Officer 07/27/21 20:26 [place] % (Auto) Loan Servicing Officer 07/27/21 20:26 Eos % (Auto) Loan Servicing Officer 07/27/21 20:26 Baso % (Auto) Loan Servicing Officer 07/27/21 20:26 Lymph # (Auto) Loan Servicing Officer 07/27/21 20:26 [place] # (Auto) Loan Servicing Officer 07/27/21 20:26 Eos # (Auto) Loan Servicing Officer 07/27/21 20:26 Baso # (Auto) Loan Servicing Officer 07/27/21 20:26 Add Manual Diff Complete 07/29/21 05:29 Total Counted 100 07/29/21 05:29 Seg Neutrophils % Loan Servicing Officer 07/29/21 05:29 Seg Neuts % (Manual) 91.0 % (40.0-70.0) H 07/29/21 05:29 Band Neutrophils % 0 % 07/29/21 05:29 Lymphocytes % (Manual) 4.0 % (13.4-35.0) L 07/29/21 05:29 Reactive Lymphs % (Man) 0 % 07/29/21 05:29 Monocytes % (Manual) 5.0 % (0.0-7.3) 07/29/21 05:29 Eosinophils % (Manual) 0 % (0.0-4.3) 07/29/21 05:29 Basophils % (Manual) 0 % (0.0-1.8) 07/29/21 05:29 Metamyelocytes % 0 % 07/29/21 05:29 Myelocytes % 0 % 07/29/21 05:29 Promyelocytes % 0 % 07/29/21 05:29 Blast Cells % 0 % 07/29/21 05:29 Nucleated RBC % Not Reportable 07/29/21 05:29 Seg Neutrophils # Loan Servicing Officer 07/27/21 20:26 Seg Neutrophils # Man 12.6 K/mm3 (1.8-7.7) H 07/29/21 05:29 Band Neutrophils # 0.0 K/mm3 07/29/21 05:29 Lymphocytes # (Manual) 0.6 K/mm3 (1.2-5.4) L 07/29/21 05:29 Abs React Lymphs (Man) 0.0 K/mm3 07/29/21 05:29 Monocytes # (Manual) 0.7 K/mm3 (0.0-0.8) 07/29/21 05:29 Eosinophils # (Manual) 0.0 K/mm3 (0.0-0.4) 07/29/21 05:29 Basophils # (Manual) 0.0 K/mm3 (0.0-0.1) 07/29/21 05:29 Metamyelocytes # 0.0 K/mm3 07/29/21 05:29 Myelocytes # 0.0 K/mm3 07/29/21 05:29 Promyelocytes # 0.0 K/mm3 07/29/21 05:29 Blast Cells # 0.0 K/mm3 07/29/21 05:29 WBC Morphology Not Reportable 07/29/21 05:29 Hypersegmented Neuts Not Reportable 07/29/21 05:29 Hyposegmented Neuts Not Reportable 07/29/21 05:29 Hypogranular Neuts Not Reportable 07/29/21 05:29 Smudge Cells Not Reportable 07/29/21 05:29 Toxic Granulation Not Reportable 07/29/21 05:29 Toxic Vacuolation Not Reportable 07/29/21 05:29 Dohle Bodies Not Reportable 07/29/21 05:29 Pelger-Huet Anomaly Not Reportable 07/29/21 05:29 Gabriel Rods Not Reportable 07/29/21 05:29 Platelet Estimate Consistent w auto 07/29/21 05:29 Clumped Platelets Not Reportable 07/29/21 05:29 Plt Clumps, EDTA Not Reportable 07/29/21 05:29 Large Platelets Not Reportable 07/29/21 05:29 Giant Platelets Not Reportable 07/29/21 05:29 Platelet Satelliting Not Reportable 07/29/21 05:29 Plt Morphology Comment Not Reportable 07/29/21 05:29 RBC Morphology Not Reportable 07/29/21 05:29 Dimorphic RBCs Not Reportable 07/29/21 05:29 Polychromasia Not Reportable 07/29/21 05:29 Hypochromasia Not Reportable 07/29/21 05:29 Poikilocytosis Not Reportable 07/29/21 05:29 Anisocytosis 1+ 07/29/21 05:29 Microcytosis Not Reportable 07/29/21 05:29 Macrocytosis Not Reportable 07/29/21 05:29 Spherocytes Not Reportable 07/29/21 05:29 Pappenheimer Bodies Not Reportable 07/29/21 05:29 Sickle Cells Not Reportable 07/29/21 05:29 Target Cells Not Reportable 07/29/21 05:29 Tear Drop Cells Not Reportable 07/29/21 05:29 Ovalocytes Not Reportable 07/29/21 05:29 Helmet Cells Not Reportable 07/29/21 05:29 [place] Bodies Not Reportable 07/29/21 05:29 [place] Rings Not Reportable 07/29/21 05:29 Maged Cells Not Reportable 07/29/21 05:29 Bite Cells Not Reportable 07/29/21 05:29 Crenated Cell Not Reportable 07/29/21 05:29 Elliptocytes Not Reportable 07/29/21 05:29 Acanthocytes (Spur) Not Reportable 07/29/21 05:29 Rouleaux Not Reportable 07/29/21 05:29 Hemoglobin C Crystals Not Reportable 07/29/21 05:29 Schistocytes Not Reportable 07/29/21 05:29 Malaria parasites Not Reportable 07/29/21 05:29 Merlin Bodies Not Reportable 07/29/21 05:29 Hem Pathologist Commnt No 07/29/21 05:29 Sodium 138 mmol/L (137-145) 07/29/21 05:29 Potassium 4.6 mmol/L (3.6-5.0) D 07/29/21 05:29 Chloride 103.3 mmol/L (98-107) 07/29/21 05:29 Carbon Dioxide 24 mmol/L (22-30) 07/29/21 05:29 Anion Gap 15 mmol/L 07/29/21 05:29 BUN 15 mg/dL (7-17) 07/29/21 05:29 Creatinine 0.8 mg/dL (0.6-1.2) 07/29/21 05:29 Estimated GFR > 60 ml/min 07/29/21 05:29 BUN/Creatinine Ratio 19 % 07/29/21 05:29 Glucose 136 mg/dL (65-100) H 07/29/21 05:29 Lactic Acid 1.60 mmol/L (0.7-2.0) 07/27/21 20:26 Calcium 8.4 mg/dL (8.4-10.2) 07/29/21 05:29 Coronavirus (PCR) Positive (Negative) A 07/28/21 08:50 Microbiology: Microbiology 07/27/21 20:26 Peripheral/Venous Blood Culture - Preliminary NO GROWTH AFTER 24 HOURS 07/27/21 20:26 Peripheral/Venous Blood Culture - Preliminary NO GROWTH AFTER 24 HOURS Syed/IV: Voiding Method Toilet Active Medications - Current Medications Current Medications: Generic Name Dose Route Start Last Admin Trade Name Freq PRN Reason Stop Dose Admin Acetaminophen 650 mg 07/28/21 01:34 Acetaminophen 325 Mg Tab PO Q4H PRN Pain MILD(1-3)/Fever >100.5/MARTINEZ Albuterol 2.5 mg 07/28/21 01:34 Albuterol 2.5 Mg/3 Ml Nebu IH Q4HRT PRN Shortness Of Breath Albuterol/Ipratropium 1 ampul 07/28/21 02:00 07/28/21 20:24 Ipratropium/Albuterol Sulfate 3 Ml Ampul.Neb IH Not Given Q6HRT SU[facility]TE Arformoterol Tartrate 15 mcg 07/28/21 08:00 07/28/21 20:21 Arformoterol 15 Mcg/2 Ml Nebu IH 15 mcg Q12HRT [facility] Administration Atorvastatin Calcium 20 mg 07/28/21 22:00 07/28/21 22:19 Atorvastatin 20 Mg Tab PO 20 mg QHS [facility] Administration Budesonide 0.5 mg 07/28/21 08:00 07/28/21 20:22 Budesonide 0.5 Mg/2 Ml Nebu IH 0.5 mg Q12HRT [facility] Administration Famotidine 10 mg 07/28/21 10:00 07/28/21 22:19 Famotidine 10 Mg Tab PO 10 mg BID [facility] Administration Heparin Sodium (Porcine) 5,000 unit 07/28/21 06:00 07/29/21 05:34 Heparin 5,000 Unit/1 Ml Vial SUB-Q 5,000 unit Q8HR [facility] Administration Hydrochlorothiazide 25 mg 07/28/21 10:00 07/28/21 09:54 Hydrochlorothiazide 25 Mg Tab PO 25 mg QDAY [facility] Administration Hydromorphone HCl 0.5 mg 07/28/21 01:34 07/29/21 00:09 Hydromorphone 1 Mg/1 Ml Inj IV 0.5 mg Q3H PRN Administration Pain , Severe (7-10) Levofloxacin 750 mg 07/28/21 10:00 07/28/21 09:54 Levofloxacin 750 Mg Tab PO 08/01/21 10:01 750 mg Q24HR [facility] Administration Protocol Lisinopril 20 mg 07/28/21 10:00 07/28/21 09:54 Lisinopril 20 Mg Tab PO 20 mg QDAY [facility] Administration Methylprednisolone Sodium Succinate 40 mg 07/28/21 06:00 07/29/21 05:31 Methylprednisolone Sod Succinate 40 Mg/1 Ml Inj IV 40 mg Q6HR [facility] Administration Metoprolol Tartrate 12.5 mg 07/28/21 22:00 07/28/21 23:21 Metoprolol Tartrate 25 Mg Tab PO 12.5 mg BID [facility] Administration Montelukast Sodium 10 mg 07/28/21 22:00 07/28/21 22:19 Montelukast 10 Mg Tab PO 10 mg QHS [facility] Administration Morphine Sulfate 2 mg 07/28/21 01:34 Morphine 2 Mg/1 Ml Inj IV Q4H PRN Pain, Moderate (4-6) Ondansetron HCl 4 mg 07/28/21 01:34 Ondansetron 4 Mg/2 Ml Inj IV Q8H PRN Nausea And Vomiting Sodium Chloride 10 ml 07/28/21 10:00 07/28/21 22:20 Sodium Chloride 0.9% 10 Ml Flush Syringe IV 10 ml BID [facility] Administration Sodium Chloride 10 ml 07/28/21 01:34 Sodium Chloride 0.9% 10 Ml Flush Syringe IV PRN PRN LINE FLUSH
[2021-07-29] MEDS: IPRATROPIUM/ALBUTEROL SULFATE 3 ML AMPUL.NEB IH SCH ×4 (09:08→23:02)
[2021-07-29] MEDS: ARFORMOTEROL 15 MCG/2 ML NEBU IH SCH ×2 (09:08→23:02)
[2021-07-29] MEDS: BUDESONIDE 0.5 MG/2 ML NEBU IH SCH ×2 (09:08→23:02)
[2021-07-29 10:42] LABS: C-Reactive Protein 0.8 mg/dL (0.00-1.30)
[2021-07-29] MEDS: levoFLOXacin 750 MG TAB PO SCH (12:34)
[2021-07-29] MEDS: LISINOPRIL 20 MG TAB PO SCH (12:34)
[2021-07-29] MEDS: METOPROLOL TARTRATE 25 MG TAB PO SCH ×2 (12:35→22:52)
[2021-07-29] MEDS: hydroCHLOROthiazide 25 MG TAB PO SCH (12:36)
[2021-07-29] MEDS: FAMOTIDINE 10 MG TAB PO SCH ×2 (12:37→22:36)
[2021-07-29 20:36] LABS: Alanine Aminotransferase 10 units/L (7-56); Albumin 3.5 g/dL (3.9-5); BUN/Creatinine Ratio 19; Blood Urea Nitrogen 17 mg/dL (7-17); Calcium 8.9 mg/dL (8.4-10.2); Hemolysis Index 2
[2021-07-29] MEDS ORDERED: REMDESIVIR 200 MG in SODIUM CHLORIDE 0.9% 250ML 250 ML IV ONE (22:00)
[2021-07-29] MEDS: MONTELUKAST 10 MG TAB PO SCH (22:35)
[2021-07-29] MEDS: SODIUM CHLORIDE 0.9% 50 ML IVPB IV SCH (22:39)
[2021-07-29] MEDS: guaiFENesin 100 MG/5 ML ORAL LIQD PO PRN (22:45)
[2021-07-30] MEDS: methylPREDNISolone Sod Succinate 40 MG/1 ML INJ IV SCH ×5 (01:08→22:54)
[2021-07-30] MEDS: HEPARIN 5,000 UNIT/1 ML VIAL SUB-Q SCH ×3 (06:18→22:48)
[2021-07-30] MEDS: guaiFENesin 100 MG/5 ML ORAL LIQD PO PRN ×3 (06:19→22:53)
[2021-07-30] MEDS: LISINOPRIL 20 MG TAB PO SCH (09:28)
[2021-07-30] MEDS: FAMOTIDINE 10 MG TAB PO SCH ×2 (09:28→22:47)
[2021-07-30] MEDS: levoFLOXacin 750 MG TAB PO SCH (09:28)
[2021-07-30] MEDS: hydroCHLOROthiazide 25 MG TAB PO SCH (09:28)
[2021-07-30] MEDS: METOPROLOL TARTRATE 25 MG TAB PO SCH ×2 (09:29→23:04)
[2021-07-30] MEDS: BUDESONIDE 0.5 MG/2 ML NEBU IH SCH ×2 (09:35→20:09)
[2021-07-30] MEDS: IPRATROPIUM/ALBUTEROL SULFATE 3 ML AMPUL.NEB IH SCH ×4 (09:35→20:09)
[2021-07-30] MEDS: ARFORMOTEROL 15 MCG/2 ML NEBU IH SCH ×2 (09:35→20:09)
[2021-07-30 10:12] LABS: Alanine Aminotransferase 11 units/L (7-56); Albumin 3.7 g/dL (3.9-5); BUN/Creatinine Ratio 22; Blood Urea Nitrogen 22 mg/dL (7-17); Calcium 9.2 mg/dL (8.4-10.2); Hemolysis Index 2
--- NOTE | 2021-07-30 13:51 | Consultation ---
History of Present Illness - Reason for Consult Consult date: 07/30/21 COVID-19 Requesting physician: LOUIE LEVINE - History of Present Illness The patient is a 70-year-old female with hypertension, COPD was admitted with worsening shortness of breath. Symptomatic for about 2 weeks but acutely worse. Chest x-ray showed chronic appearing fibrotic changes. She has been afebrile. Tested positive for COVID-19. WBC was elevated at 14.4 on admission. CRP 0.8, ferritin 121, D-dimer 857. Receiving levofloxacin, steroids and started on Remdesivir today. Hypoxic requiring nasal cannula. Review of Systems: reviewed in the chart, unable to obtain, minimize risk of transmission Past History Past Medical History: COPD, hypertension Family history: hypertension Medications and Allergies Allergies Allergy/AdvReac Type Severity Reaction Status Date / Time No Known Allergies Allergy Verified 07/27/21 19:34 Home Medications Medication Instructions Recorded Confirmed Last Taken Type AtorvaSTATin [Lipitor] 20 mg PO QHS 12/02/18 07/30/21 07/28/21 History Cholecalciferol (Vitamin D3) 50,000 unit PO QWEEK 12/02/18 07/30/21 07/27/21 History [Vitamin D3 50,000UNIT CAP] Enalapril Maleate [Vasotec] 20 mg PO DAILY 12/02/18 07/30/21 07/28/21 History Fluticasone/Salmeterol [Advair 1 puff IH BID 12/02/18 07/30/21 07/28/21 History Diskus 100-50 mcg] Omeprazole 20 mg PO QDAY 12/02/18 07/30/21 07/28/21 History hydroCHLOROthiazide [HCTZ] 25 mg PO QDAY 12/02/18 07/30/21 07/28/21 History Active Meds: Active Medications Acetaminophen (Acetaminophen 325 Mg Tab) 650 mg PO Q4H PRN PRN Reason: Pain MILD(1-3)/Fever >100.5/MARTINEZ Albuterol (Albuterol 2.5 Mg/3 Ml Nebu) 2.5 mg IH Q4HRT PRN PRN Reason: Shortness Of Breath Albuterol/Ipratropium (Ipratropium/Albuterol Sulfate 3 Ml Ampul.Neb) 1 ampul IH Q6HRT [facility] Last Admin: 07/30/21 09:55 Dose: Not Given Arformoterol Tartrate (Arformoterol 15 Mcg/2 Ml Nebu) 15 mcg IH Q12HRT [facility] Last Admin: 07/30/21 09:35 Dose: 15 mcg Atorvastatin Calcium (Atorvastatin 20 Mg Tab) 20 mg PO QHS [facility] Last Admin: 07/29/21 22:36 Dose: 20 mg Budesonide (Budesonide 0.5 Mg/2 Ml Nebu) 0.5 mg IH Q12HRT [facility] Last Admin: 07/30/21 09:35 Dose: 0.5 mg Famotidine (Famotidine 10 Mg Tab) 10 mg PO BID [facility] Last Admin: 07/30/21 09:28 Dose: 10 mg Guaifenesin (Guaifenesin 100 Mg/5 Ml Oral Liqd) 200 mg PO Q4H PRN PRN Reason: Cough Last Admin: 07/30/21 12:33 Dose: 200 mg Heparin Sodium (Porcine) (Heparin 5,000 Unit/1 Ml Vial) 5,000 unit SUB-Q Q8HR [facility] Last Admin: 07/30/21 06:18 Dose: 5,000 unit Hydrochlorothiazide (Hydrochlorothiazide 25 Mg Tab) 25 mg PO QDAY [facility] Last Admin: 07/30/21 09:28 Dose: 25 mg Hydromorphone HCl (Hydromorphone 1 Mg/1 Ml Inj) 0.5 mg IV Q3H PRN PRN Reason: Pain , Severe (7-10) Last Admin: 07/29/21 20:44 Dose: 0.5 mg REMDESIVIR 100 mg/ Sodium (Chloride) 250 mls @ 500 mls/hr IV Q24HR@1400 [facility] Stop: 08/02/21 14:29 Levofloxacin (Levofloxacin 750 Mg Tab) 750 mg PO Q24HR [facility]; Protocol Stop: 08/01/21 10:01 Last Admin: 07/30/21 09:28 Dose: 750 mg Lisinopril (Lisinopril 20 Mg Tab) 20 mg PO QDAY [facility] Last Admin: 07/30/21 09:28 Dose: 20 mg Methylprednisolone Sodium Succinate (Methylprednisolone Sod Succinate 40 Mg/1 Ml Inj) 40 mg IV Q6HR [facility] Last Admin: 07/30/21 12:33 Dose: 40 mg Metoprolol Tartrate (Metoprolol Tartrate 25 Mg Tab) 12.5 mg PO BID [facility] Last Admin: 07/30/21 09:29 Dose: 12.5 mg Montelukast Sodium (Montelukast 10 Mg Tab) 10 mg PO QHS [facility] Last Admin: 07/29/21 22:35 Dose: 10 mg Morphine Sulfate (Morphine 2 Mg/1 Ml Inj) 2 mg IV Q4H PRN PRN Reason: Pain, Moderate (4-6) Ondansetron HCl (Ondansetron 4 Mg/2 Ml Inj) 4 mg IV Q8H PRN PRN Reason: Nausea And Vomiting Sodium Chloride (Sodium Chloride 0.9% 10 Ml Flush Syringe) 10 ml IV BID [facility] Last Admin: 07/30/21 09:29 Dose: 10 ml Sodium Chloride (Sodium Chloride 0.9% 10 Ml Flush Syringe) 10 ml IV PRN PRN PRN Reason: LINE FLUSH Sodium Chloride (Sodium Chloride 0.9% 50 Ml Ivpb) 50 ml IV Q24HR@1400 [facility] Stop: 08/02/21 14:01 Last Admin: 07/29/21 22:39 Dose: 50 ml Physical Examination - Physical Exam Narrative exam: Physical Exam (reviewed in chart to minimize risk of transmission) Constitutional: deferred Head, Ears, Nose: deferred Eyes: deferred Neck: deferred Oral: deferred Cardiovascular: deferred Respiratory: deferred GI: deferred Musculoskeletal: deferred Skin: deferred Hem/Lymphatic: deferred Psych: deferred Neurological: deferred - Constitutional Vitals: Vital Signs Temp Pulse Resp BP Pulse Ox 97.5 F L 84 18 124/84 99 07/30/21 11:52 07/30/21 11:52 07/30/21 11:52 07/30/21 11:52 07/30/21 11:52 Temperature -Last 24 Hours Temperature 97.5 F Temperature 97.9 F Temperature 97.7 F Temperature 97.3 F Temperature 98.5 F Results - Labs CBC & Chem 7: 07/29/21 05:29 07/30/21 09:20 Labs: Abnormal lab results 07/29/21 07/30/21 Range/Units Unknown 09:20 Sodium 136 L (137-145) mmol/L Chloride 97.6 L (98-107) mmol/L BUN 22 H (7-17) mg/dL Glucose 139 H 134 H (65-100) mg/dL Alkaline Phosphatase 130 H (35-129) units/L Total Protein 8.5 H (6.3-8.2) g/dL Albumin 3.5 L 3.7 L (3.9-5) g/dL - Imaging and Cardiology Chest x-ray: report reviewed, image reviewed (chronic fibrotic changes b/l ) Assessment and Plan Cultures: SARS CoV2 PCR: Positive 07/27/2021 blood culture: No growth A/P: 70/F with HTN, COPD admitted with: #Bilateral pneumonia: Secondary to COVID-19 #Leukocytosis: ? Bacterial component #Acute hypoxic respiratory failure: On nasal cannula. #COPD, acute exacerbation Recs: -Already on steroids, complete 10 days -IV remdesivir x 5 days -prophylactic anticoagulation based on d-dimer per hospital protocol -continue abx for now, f/u procalcitonin Robert Louis MD, FACP, [facility] O: [phone] F: [phone]
[2021-07-30] MEDS: HYDROmorphone 1 MG/1 ML INJ IV PRN (13:56)
--- NOTE | 2021-07-30 14:29 | Progress Note ---
Assessment and Plan --Positive COVID-19[07/28/2021] Jo PCR, isolation precautions Inflammatory markers Requiring 2 to 3 L of nasal cannula oxygen Prone positioning ID consult --PUI; high suspicion for COVID-19; Jo PCR test is positive -- Possible atrial flutter; sinus tach today Beta-blockers, closely monitor Cardiology consult if needed - Acute exacerbation of chronic obstructive pulmonary disease (COPD) Admit the patient to the medical floor. Oxygen by nasal cannula 3 l/min. DuoNeb nebulizer every 4 hours. Albuterol by nebulizer every 4 hours as needed. Solu-Medrol 40 mg IV every 6 hours. Levaquin 750 mg p.o. daily. Do the blood cultures sputum culture. Consult pulmonary if needed -- Acute hypoxic respiratory failure Oxygen by nasal cannula 3 l/min. DuoNeb nebulizer every 4 hours. Albuterol by nebulizer every 4 hours as needed. Solu-Medrol 40 mg IV every 6 hours. Levaquin 750 mg p.o. daily. Do the blood cultures sputum culture. Consult pulmonary if needed --HTN (hypertension) Hydralazine 10 mg IV every 6 hours as needed. We continue the home medication. We monitor the patient closely -- Hyperlipidemia Lipitor 20 mg p.o. nightly. We continue the home medication -- DVT prophylaxis Heparin 5000 units subcu every 8 hours for DVT prophylaxis. Pepcid 20 mg p.o. twice daily for GI prophylaxis. Patient is a full code Brief history: 70-year-old female with past medical history of hypertension and COPD not on home oxygen was brought to the emergency room because of shortness of breath. The patient states her symptoms began today with shortness of breath. The patient states she ran out of her Trelegy yesterday and the pharmacy was not able to refill it. Patient admits to a cough productive of brownish-white sputum for the past 2 weeks. Patient denies history of fever but admits to rhinorrhea. Jo PCR test is positive, hypoxic on steroids and remdesivir, consult ID if needed 07/29/2021; positive COVID-19 on 07/28/2021, 2 L of nasal cannula oxygen, continue steroid, add remdesivir Follow inflammatory markers 07/30/20 continue supplemental O2 now up wean off as tolerated.; Continue dexamethasone and remdesivir 2/5 day. Follow inflammatory markers Subjective Date of service: 07/30/21 Interval history: Patient seen and examined at the bedside Patient's chart and medications reviewed Patient feels slightly better no new complaints, remains on nasal cannula O2 Isolation precautions and PPE protocols observed Objective - Exam Narrative Exam: General appearance: Present: no acute distress, well-nourished, other (2 L nasal cannula) - EENT Eyes: Present: PERRL, EOM intact - Neck Neck: Present: supple, normal ROM - Respiratory Respiratory effort: normal Respiratory: bilateral: diminished, negative: rales, rhonchi, wheezing - Cardiovascular Rhythm: regular Heart Sounds: Present: S1 & S2 - Extremities Extremities: no ischemia, No edema - Abdominal General gastrointestinal: soft, non-tender, non-distended, normal bowel sounds - Integumentary Integumentary: Present: clear, warm - Psychiatric Psychiatric: appropriate mood/affect, cooperative - Neurologic Neurologic: CNII-XII intact, moves all extremities - Constitutional Vitals: Vital Signs - 12hr 07/30/21 07/30/21 07/30/21 05:22 08:09 09:35 Temperature 97.7 F 97.9 F Pulse Rate 91 H 87 Pulse Rate [ 74 Bilateral Throughout] Respiratory 18 19 Rate Respiratory 18 Rate [Bilateral Throughout] Blood Pressure 145/86 138/88 O2 Sat by Pulse 100 98 97 Oximetry 07/30/21 07/30/21 10:00 11:52 Temperature 97.5 F L Pulse Rate 84 Pulse Rate [ Bilateral Throughout] Respiratory 18 Rate Respiratory Rate [Bilateral Throughout] Blood Pressure 124/84 O2 Sat by Pulse 97 99 Oximetry - Labs CBC & Chem 7: 07/29/21 05:29 07/31/21 05:44 Labs: Abnormal lab results 07/29/21 07/30/21 Range/Units Unknown 09:20 Sodium 136 L (137-145) mmol/L Chloride 97.6 L (98-107) mmol/L BUN 22 H (7-17) mg/dL Glucose 139 H 134 H (65-100) mg/dL Alkaline Phosphatase 130 H (35-129) units/L Total Protein 8.5 H (6.3-8.2) g/dL Albumin 3.5 L 3.7 L (3.9-5) g/dL
[2021-07-30] MEDS: SODIUM CHLORIDE 0.9% 50 ML IVPB IV SCH (16:00)
[2021-07-30] MEDS: REMDESIVIR 100 MG in SODIUM CHLORIDE 0.9% 250ML 250 ML IV SCH (16:00)
[2021-07-30] MEDS: MORPHINE 2 MG/1 ML INJ IV PRN (22:46)
[2021-07-30] MEDS: MONTELUKAST 10 MG TAB PO SCH (22:48)
[2021-07-31] MEDS: IPRATROPIUM/ALBUTEROL SULFATE 3 ML AMPUL.NEB IH SCH ×3 (03:06→16:50)
[2021-07-31] MEDS: HEPARIN 5,000 UNIT/1 ML VIAL SUB-Q SCH ×3 (06:27→23:35)
[2021-07-31] MEDS: methylPREDNISolone Sod Succinate 40 MG/1 ML INJ IV SCH ×5 (06:28→23:40)
[2021-07-31] MEDS: MORPHINE 2 MG/1 ML INJ IV PRN ×3 (06:31→23:44)
[2021-07-31 08:01] LABS: Alanine Aminotransferase 13 units/L (7-56); Albumin 3.1 g/dL (3.9-5); BUN/Creatinine Ratio 29; Blood Urea Nitrogen 29 mg/dL (7-17); Calcium 8.4 mg/dL (8.4-10.2); Hemolysis Index 3
[2021-07-31] MEDS: ARFORMOTEROL 15 MCG/2 ML NEBU IH SCH (10:13)
[2021-07-31] MEDS: BUDESONIDE 0.5 MG/2 ML NEBU IH SCH (10:13)
[2021-07-31] MEDS: METOPROLOL TARTRATE 25 MG TAB PO SCH ×2 (10:46→23:33)
[2021-07-31] MEDS: levoFLOXacin 750 MG TAB PO SCH (10:46)
[2021-07-31] MEDS: FAMOTIDINE 10 MG TAB PO SCH ×2 (10:46→23:33)
[2021-07-31] MEDS: hydroCHLOROthiazide 25 MG TAB PO SCH (10:46)
[2021-07-31] MEDS: LISINOPRIL 20 MG TAB PO SCH (10:48)
--- NOTE | 2021-07-31 15:19 | Progress Note ---
Assessment and Plan --Positive COVID-19[07/28/2021] Jo PCR, isolation precautions Inflammatory markers Requiring 2 to 3 L of nasal cannula oxygen Prone positioning ID consult --PUI; high suspicion for COVID-19; Jo PCR test is positive -- Possible atrial flutter; sinus tach today Beta-blockers, closely monitor Cardiology consult if needed - Acute exacerbation of chronic obstructive pulmonary disease (COPD) Admit the patient to the medical floor. Oxygen by nasal cannula 3 l/min. DuoNeb nebulizer every 4 hours. Albuterol by nebulizer every 4 hours as needed. Solu-Medrol 40 mg IV every 6 hours. Levaquin 750 mg p.o. daily. Do the blood cultures sputum culture. Consult pulmonary if needed -- Acute hypoxic respiratory failure Oxygen by nasal cannula 3 l/min. DuoNeb nebulizer every 4 hours. Albuterol by nebulizer every 4 hours as needed. Solu-Medrol 40 mg IV every 6 hours. Levaquin 750 mg p.o. daily. Do the blood cultures sputum culture. Consult pulmonary if needed --HTN (hypertension) Hydralazine 10 mg IV every 6 hours as needed. We continue the home medication. We monitor the patient closely -- Hyperlipidemia Lipitor 20 mg p.o. nightly. We continue the home medication -- DVT prophylaxis Heparin 5000 units subcu every 8 hours for DVT prophylaxis. Pepcid 20 mg p.o. twice daily for GI prophylaxis. Patient is a full code Brief history: 70-year-old female with past medical history of hypertension and COPD not on home oxygen was brought to the emergency room because of shortness of breath. The patient states her symptoms began today with shortness of breath. The patient states she ran out of her Trelegy yesterday and the pharmacy was not able to refill it. Patient admits to a cough productive of brownish-white sputum for the past 2 weeks. Patient denies history of fever but admits to rhinorrhea. Jo PCR test is positive, hypoxic on steroids and remdesivir, consult ID if needed 07/29/2021; positive COVID-19 on 07/28/2021, 2 L of nasal cannula oxygen, continue steroid, add remdesivir Follow inflammatory markers 07/30/21 Continue supplemental O2 now up wean off as tolerated.; Continue dexamethasone and remdesivir 2/5 day. Follow inflammatory markers 07/31/21 remains on supplemental O2, continue dexamethasone, continue remdesivir day 3 out of 5. Continue to follow clinically, follow ID recommendation. Subjective Date of service: 07/31/21 Interval history: Patient seen and examined at the bedside Patient's chart and medications reviewed Patient feels slightly better no new complaints, remains on nasal cannula O2 Isolation precautions and PPE protocols observed Objective - Exam Narrative Exam: General appearance: Present: no acute distress, well-nourished, other (2 L nasal cannula) - EENT Eyes: Present: PERRL, EOM intact - Neck Neck: Present: supple, normal ROM - Respiratory Respiratory effort: normal Respiratory: bilateral: diminished, negative: rales, rhonchi, wheezing - Cardiovascular Rhythm: regular Heart Sounds: Present: S1 & S2 - Extremities Extremities: no ischemia, No edema - Abdominal General gastrointestinal: soft, non-tender, non-distended, normal bowel sounds - Integumentary Integumentary: Present: clear, warm - Psychiatric Psychiatric: appropriate mood/affect, cooperative - Neurologic Neurologic: CNII-XII intact, moves all extremities - Constitutional Vitals: Vital Signs - 12hr 07/31/21 07/31/21 07/31/21 04:32 10:00 10:13 Temperature 97.8 F Pulse Rate 90 Pulse Rate [ 96 H Bilateral Throughout] Respiratory 20 Rate Respiratory 20 Rate [Bilateral Throughout] Blood Pressure 151/88 O2 Sat by Pulse 100 97 Oximetry 07/31/21 07/31/21 07/31/21 10:15 10:46 10:48 Temperature Pulse Rate 97 H 95 H Pulse Rate [ Bilateral Throughout] Respiratory Rate Respiratory Rate [Bilateral Throughout] Blood Pressure 137/77 137/77 O2 Sat by Pulse 98 Oximetry - Labs CBC & Chem 7: 07/29/21 05:29 08/01/21 05:49 Labs: Abnormal lab results 07/31/21 Range/Units 05:44 Sodium 136 L (137-145) mmol/L BUN 29 H (7-17) mg/dL Glucose 107 H (65-100) mg/dL Albumin 3.1 L (3.9-5) g/dL
--- NOTE | 2021-07-31 15:25 | Progress Note ---
Assessment and Plan Cultures: SARS CoV2 PCR: Positive 07/27/2021 blood culture: No growth A/P: 70/F with HTN, COPD admitted with: #Bilateral pneumonia: Secondary to COVID-19 #Leukocytosis: ?Bacterial component but low procalcitonin. #Acute hypoxic respiratory failure: On nasal cannula. #COPD, acute exacerbation Recs: -Already on steroids, complete 10 days -continue IV remdesivir x 5 days -prophylactic anticoagulation based on d-dimer per hospital protocol -procalcitonin is low, abx discontinued Robert Louis MD, FACP, [facility] O: [phone] F: [phone] Subjective Date of service: 07/31/21 Interval history: No fever. On nasal cannula oxygen. Objective - Exam Narrative Exam: Physical Exam (reviewed in chart to minimize risk of transmission) Constitutional: deferred Head, Ears, Nose: deferred Eyes: deferred Neck: deferred Oral: deferred Cardiovascular: deferred Respiratory: deferred GI: deferred Musculoskeletal: deferred Skin: deferred Hem/Lymphatic: deferred Psych: deferred Neurological: deferred - Constitutional Vitals: Vital Signs Temp Pulse Resp BP Pulse Ox 97.8 F 95 H 20 137/77 98 07/31/21 04:32 07/31/21 10:48 07/31/21 10:13 07/31/21 10:48 07/31/21 10:15 Temperature -Last 24 Hours Temperature 97.8 F Temperature 97.9 F Temperature 97.7 F - Labs CBC & Chem 7: 07/29/21 05:29 07/31/21 05:44 Labs: Abnormal lab results 07/31/21 Range/Units 05:44 Sodium 136 L (137-145) mmol/L BUN 29 H (7-17) mg/dL Glucose 107 H (65-100) mg/dL Albumin 3.1 L (3.9-5) g/dL
[2021-07-31] MEDS: REMDESIVIR 100 MG in SODIUM CHLORIDE 0.9% 250ML 250 ML IV SCH (15:57)
[2021-07-31] MEDS: SODIUM CHLORIDE 0.9% 50 ML IVPB IV SCH (16:06)
[2021-07-31] MEDS: guaiFENesin 100 MG/5 ML ORAL LIQD PO PRN ×2 (18:21→23:43)
[2021-07-31] MEDS: MONTELUKAST 10 MG TAB PO SCH (23:34)
[2021-08-01] MEDS: methylPREDNISolone Sod Succinate 40 MG/1 ML INJ IV SCH ×3 (06:37→23:40)
[2021-08-01] MEDS: HEPARIN 5,000 UNIT/1 ML VIAL SUB-Q SCH ×3 (06:37→23:42)
[2021-08-01] MEDS: MORPHINE 2 MG/1 ML INJ IV PRN ×3 (06:38→23:38)
[2021-08-01 06:53] LABS: Alanine Aminotransferase 17 units/L (7-56); Albumin 2.9 g/dL (3.9-5); BUN/Creatinine Ratio 31; Blood Urea Nitrogen 31 mg/dL (7-17); Calcium 8.1 mg/dL (8.4-10.2); Hemolysis Index 8
[2021-08-01] MEDS: ARFORMOTEROL 15 MCG/2 ML NEBU IH SCH ×3 (09:24→22:25)
[2021-08-01] MEDS: IPRATROPIUM/ALBUTEROL SULFATE 3 ML AMPUL.NEB IH SCH ×5 (09:24→22:26)
[2021-08-01] MEDS: BUDESONIDE 0.5 MG/2 ML NEBU IH SCH ×3 (09:25→22:25)
[2021-08-01] MEDS: FAMOTIDINE 10 MG TAB PO SCH ×2 (09:42→23:41)
[2021-08-01] MEDS: hydroCHLOROthiazide 25 MG TAB PO SCH (09:42)
[2021-08-01] MEDS: LISINOPRIL 20 MG TAB PO SCH (09:45)
[2021-08-01] MEDS: METOPROLOL TARTRATE 25 MG TAB PO SCH ×2 (09:46→23:43)
--- NOTE | 2021-08-01 12:52 | Progress Note ---
Assessment and Plan Cultures: SARS CoV2 PCR: Positive 07/27/2021 blood culture: No growth A/P: 70/F with HTN, COPD admitted with: #Bilateral pneumonia: Secondary to COVID-19 #Leukocytosis: ?Bacterial component but low procalcitonin. #Acute hypoxic respiratory failure: On nasal cannula. #COPD, acute exacerbation Recs: -Already on steroids, complete 10 days -continue IV remdesivir x 5 days -prophylactic anticoagulation based on d-dimer per hospital protocol Robert Louis MD, FACP, [facility] O: [phone] F: [phone] Subjective Date of service: 08/01/21 Interval history: No fever. Stable on nasal cannula oxygen. Objective - Exam Narrative Exam: Physical Exam (reviewed in chart to minimize risk of transmission) Constitutional: deferred Head, Ears, Nose: deferred Eyes: deferred Neck: deferred Oral: deferred Cardiovascular: deferred Respiratory: deferred GI: deferred Musculoskeletal: deferred Skin: deferred Hem/Lymphatic: deferred Psych: deferred Neurological: deferred - Constitutional Vitals: Vital Signs Temp Pulse Resp BP Pulse Ox 98.0 F 88 22 110/66 98 08/01/21 10:52 08/01/21 10:52 08/01/21 10:52 08/01/21 10:52 08/01/21 10:52 Temperature -Last 24 Hours Temperature 98.0 F Temperature 98.4 F Temperature 98.0 F Temperature 97.7 F - Labs CBC & Chem 7: 07/29/21 05:29 08/01/21 05:49 Labs: Abnormal lab results 08/01/21 Range/Units 05:49 Potassium 3.5 L (3.6-5.0) mmol/L BUN 31 H (7-17) mg/dL Glucose 110 H (65-100) mg/dL Calcium 8.1 L (8.4-10.2) mg/dL Albumin 2.9 L (3.9-5) g/dL
[2021-08-01] MEDS: SODIUM CHLORIDE 0.9% 50 ML IVPB IV SCH (13:28)
[2021-08-01] MEDS: REMDESIVIR 100 MG in SODIUM CHLORIDE 0.9% 250ML 250 ML IV SCH (13:28)
--- NOTE | 2021-08-01 16:01 | Progress Note ---
Assessment and Plan --Positive COVID-19[07/28/2021] Jo PCR, isolation precautions Inflammatory markers Requiring 2 to 3 L of nasal cannula oxygen Prone positioning ID consult --PUI; high suspicion for COVID-19; Jo PCR test is positive -- Possible atrial flutter; sinus tach today Beta-blockers, closely monitor Cardiology consult if needed - Acute exacerbation of chronic obstructive pulmonary disease (COPD) Admit the patient to the medical floor. Oxygen by nasal cannula 3 l/min. DuoNeb nebulizer every 4 hours. Albuterol by nebulizer every 4 hours as needed. Solu-Medrol 40 mg IV every 6 hours. Levaquin 750 mg p.o. daily. Do the blood cultures sputum culture. Consult pulmonary if needed -- Acute hypoxic respiratory failure Oxygen by nasal cannula 3 l/min. DuoNeb nebulizer every 4 hours. Albuterol by nebulizer every 4 hours as needed. Solu-Medrol 40 mg IV every 6 hours. Levaquin 750 mg p.o. daily. Do the blood cultures sputum culture. Consult pulmonary if needed --HTN (hypertension) Hydralazine 10 mg IV every 6 hours as needed. We continue the home medication. We monitor the patient closely -- Hyperlipidemia Lipitor 20 mg p.o. nightly. We continue the home medication -- DVT prophylaxis Heparin 5000 units subcu every 8 hours for DVT prophylaxis. Pepcid 20 mg p.o. twice daily for GI prophylaxis. Patient is a full code Brief history: 70-year-old female with past medical history of hypertension and COPD not on home oxygen was brought to the emergency room because of shortness of breath. The patient states her symptoms began today with shortness of breath. The patient states she ran out of her Trelegy yesterday and the pharmacy was not able to refill it. Patient admits to a cough productive of brownish-white sputum for the past 2 weeks. Patient denies history of fever but admits to rhinorrhea. Jo PCR test is positive, hypoxic on steroids and remdesivir, consult ID if needed 07/29/2021; positive COVID-19 on 07/28/2021, 2 L of nasal cannula oxygen, continue steroid, add remdesivir Follow inflammatory markers 07/30/21 continue supplemental O2 now up wean off as tolerated.; Continue dexamethasone and remdesivir 2/5 day. Follow inflammatory markers 07/31/21 remains on supplemental O2, continue dexamethasone, continue remdesivir day 3 out of 5. Continue to follow clinically, follow ID and pulmonary recommendation. 08/01/21; remdesivir day 4, continue steroid, follow inflammatory markers. Assess for home O2 requirement. Possible DC tomorrow if medically stable after last day of remdesivir. Subjective Date of service: 08/01/21 Interval history: Patient seen and examined at the bedside Patient's chart and medications reviewed Patient feels slightly better no new complaints, remains on nasal cannula O2 Isolation precautions and PPE protocols observed Objective - Exam Narrative Exam: General appearance: Present: no acute distress, well-nourished, other (2 L nasal cannula) - EENT Eyes: Present: PERRL, EOM intact - Neck Neck: Present: supple, normal ROM - Respiratory Respiratory effort: normal Respiratory: bilateral: diminished, negative: rales, rhonchi, wheezing - Cardiovascular Rhythm: regular Heart Sounds: Present: S1 & S2 - Extremities Extremities: no ischemia, No edema - Abdominal General gastrointestinal: soft, non-tender, non-distended, normal bowel sounds - Integumentary Integumentary: Present: clear, warm - Psychiatric Psychiatric: appropriate mood/affect, cooperative - Neurologic Neurologic: CNII-XII intact, moves all extremities - Constitutional Vitals: Vital Signs - 12hr 08/01/21 08/01/21 08/01/21 05:29 09:25 09:48 Temperature 98.4 F Pulse Rate 85 Pulse Rate [ 85 Bilateral Throughout] Respiratory 18 17 Rate Respiratory 18 Rate [Bilateral Throughout] Blood Pressure 125/87 O2 Sat by Pulse 99 98 96 Oximetry 08/01/21 08/01/21 08/01/21 10:52 13:22 15:11 Temperature 98.0 F Pulse Rate 88 Pulse Rate [ 89 Bilateral Throughout] Respiratory 22 20 Rate Respiratory 18 Rate [Bilateral Throughout] Blood Pressure 110/66 O2 Sat by Pulse 98 Oximetry - Labs CBC & Chem 7: 07/29/21 05:29 08/01/21 05:49 Labs: Abnormal lab results 08/01/21 Range/Units 05:49 Potassium 3.5 L (3.6-5.0) mmol/L BUN 31 H (7-17) mg/dL Glucose 110 H (65-100) mg/dL Calcium 8.1 L (8.4-10.2) mg/dL Albumin 2.9 L (3.9-5) g/dL
[2021-08-01] MEDS: MONTELUKAST 10 MG TAB PO SCH (23:41)
[2021-08-01] MEDS: guaiFENesin 100 MG/5 ML ORAL LIQD PO PRN (23:50)
[2021-08-02] MEDS: IPRATROPIUM/ALBUTEROL SULFATE 3 ML AMPUL.NEB IH SCH ×3 (03:28→13:10)
[2021-08-02] MEDS: HEPARIN 5,000 UNIT/1 ML VIAL SUB-Q SCH ×2 (06:06→13:17)
[2021-08-02] MEDS: methylPREDNISolone Sod Succinate 40 MG/1 ML INJ IV SCH ×2 (06:06→13:16)
[2021-08-02] MEDS: BUDESONIDE 0.5 MG/2 ML NEBU IH SCH (08:33)
[2021-08-02] MEDS: ARFORMOTEROL 15 MCG/2 ML NEBU IH SCH (08:33)
[2021-08-02] MEDS: LISINOPRIL 20 MG TAB PO SCH (10:19)
[2021-08-02] MEDS: METOPROLOL TARTRATE 25 MG TAB PO SCH (10:24)
[2021-08-02] MEDS: hydroCHLOROthiazide 25 MG TAB PO SCH (10:24)
[2021-08-02] MEDS: FAMOTIDINE 10 MG TAB PO SCH (10:24)
[2021-08-02] MEDS: REMDESIVIR 100 MG in SODIUM CHLORIDE 0.9% 250ML 250 ML IV SCH (13:20)
[2021-08-02] MEDS: SODIUM CHLORIDE 0.9% 50 ML IVPB IV SCH (13:21)
--- NOTE | 2021-08-02 13:29 | Discharge Summary ---
Providers - Providers Date of Admission: 07/28/21 01:34 Date of discharge: 08/02/21 Attending physician: LOUIE LEVINE 07/30/21 09:14 Consult to Physician [CONS] Routine Comment: Consulting Provider: AYO MEJIA Physician Instructions: Reason For Exam: covid positive Primary care physician: REFERENCE INVESTIGATOR Hospitalization Condition: Stable Hospital course: 70-year-old female with past medical history of hypertension and COPD not on home oxygen was brought to the emergency room because of shortness of breath. The patient states she ran out of her Trelogy and the pharmacy was not able to refill it. Her Jo PCR test is positive, hypoxic, initiated on steroids and remdesivir, consulted ID. Daily clinical course: 07/29/2021; positive COVID-19 on 07/28/2021, 2 L of nasal cannula oxygen, continue steroid, add remdesivir , Follow inflammatory markers 07/30/21 continue supplemental O2 now up wean off as tolerated.; Continue dexamethasone and remdesivir 2/5 day. Follow inflammatory markers 07/31/21 remains on supplemental O2, continue dexamethasone, continue remdesivir day 3 out of 5. Continue to follow clinically, follow ID and pulmonary recommendation. 08/01/21; remdesivir day 4, continue steroid, follow inflammatory markers. Assess for home O2 requirement. Possible DC tomorrow if medically stable after last dose of remdesivir. 08/02/21: Patient assessed for home O2 requirement. Completed total 5 days of remdesivir. Patient clinically stable and will be discharged home with outpatient follow-up. On EKG patient was suspected atrial flutter but patient then remains with sinus rhythm. Recommended outpatient follow-up with cardiology. Disposition: 06 [facility] Final Discharge Diagnosis (Prints w/discharge instructions): --COPD exacerbation. --Acute hypoxic respiratory failure. --Positive for COVID-19. --Suspected atrial flutter, patient likely had sinus tachycardia. --Hypertension. --Hyperlipidemia. --Hyponatremia and hypokalemia, repleted Time spent for discharge: 34 minutes Core Measure Documentation - Palliative Care Palliative Care/ Comfort Measures: Not Applicable - Core Measures Any of the following diagnoses?: none Exam - Physical Exam Narrative exam: General appearance: Present: no acute distress, well-nourished, other (2 L nasal cannula) - EENT Eyes: Present: PERRL, EOM intact - Neck Neck: Present: supple, normal ROM - Respiratory Respiratory effort: normal Respiratory: bilateral: diminished, negative: rales, rhonchi, wheezing - Cardiovascular Rhythm: regular Heart Sounds: Present: S1 & S2 - Extremities Extremities: no ischemia, No edema - Abdominal General gastrointestinal: soft, non-tender, non-distended, normal bowel sounds - Integumentary Integumentary: Present: clear, warm - Psychiatric Psychiatric: appropriate mood/affect, cooperative - Neurologic Neurologic: CNII-XII intact, moves all extremities - Constitutional Vitals: Temp Pulse Resp BP Pulse Ox 97.6 F 82 18 130/74 96 08/02/21 04:35 08/02/21 10:24 08/02/21 08:30 08/02/21 10:19 08/02/21 11:51 Plan Activity: advance as tolerated Weight Bearing Status: Weight Bear as Tolerated Diet: low fat, low salt Special Instructions: home oxygen via (n/c) Additional Instructions: Patient is medically stable for discharge today. Patient advised to follow-up primary care physician within 1 to 2 weeks. Advised to comply with medications diet and follow-up visits. If he has wors ening symptoms advised him to contact primary care physician go to the nearest emergency room as needed Follow up with: ALTHEA MEJIAS MD [Primary Care Provider] - 7 Days EDMUND CARMEN MD [Staff Physician] - 7 Days SAROJ KYLE MD [Staff Physician] - 7 Days Prescriptions: Dexamethasone 6 mg PO DAILY #5 Aspirin EC [Halfprin EC] 81 mg PO QDAY #30 tablet.
[2021-08-02 13:44] VITALS: BP 124/103
--- NOTE | 2021-08-03 20:08 | Electrocardiograph Report ---
[facility] Test Date: 2021-07-27 Test Time: 20:03:06 Pat Name: HALEIGH ATKINSON Department: Room: A378 Gender: F Hazardous Waste Remover: NEVILLE : 1950 Requested By: BRITT THOMPSON Order Number: [id number] Reading MD: Faizan Mendez Measurements Intervals [place] Rate: 135 P: MS: QRS: 64 QRSD: 78 T: 16 QT: 305 QTc: 458 Interpretive Statements SUSPECT Atrial flutter. 2:1 AVB Probable LVH with secondary repol abnrm ALSO CONSIDER INFERIOR ISCHEMIA No previous ECG available for comparison Electronically Signed On 08-03-2021 20:08:12 EST by Faizan Mendez
--- NOTE | 2021-08-03 21:04 | Electrocardiograph Report ---
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
== END 2021-08-02 16:20 | disposition home or self-care (01) | DRG 177 ==
LOC: ED 19:27 → 3A 07-28 01:34
PROVIDERS: ADMIT Hospitalist; ATTEND Internal Medicine
PROC: XW033E5 Introduction of Remdesivir Anti-infective into Peripheral Vein, Percutaneous Approach, New Technology Group 5 (ICD-10-PCS; principal; 2021-07-29)
DX: U07.1 COVID-19 (principal); J96.01 Acute respiratory failure with hypoxia; J12.82 Pneumonia due to coronavirus disease 2019; J44.1 Chronic obstructive pulmonary disease with (acute) exacerbation; E87.1 Hypo-osmolality and hyponatremia; Z87.891 Personal history of nicotine dependence; I10 Essential (primary) hypertension; E78.5 Hyperlipidemia, unspecified; Z82.49 Family history of ischemic heart disease and other diseases of the circulatory system; E87.6 Hypokalemia
CPT/HCPCS: 36415; 71045; 80048; 80053; 82140; 82728; 83615; 84145; 85007; 85025; 85379; 86140; 87040; 93005; 94640; 94644; 94760; G0378; Q0162; J0456; J0696; J1170; J1644; J2270; J2920; J2930; J3475; J7030; J7050; U0003